=== PATIENT | female | born 1965 | race Caucasian/White ===

== ENCOUNTER → 2017-09-15 | Outpatient (CLI) | payer OTHER ==
[~2017-09-15] MED LIST: CARV12.52 PO; CLR10 PO; HYDR25TA5 PO; VNTHFA/IN INH
== END | disposition home or self-care (01) ==
LOC: C.LABPBG 08:37
PROVIDERS: ATTEND Internal Medicine Endocrinology, Diabetes & Metabolism
DX: Z86.39 Personal history of other endocrine, nutritional and metabolic disease (principal)

== ENCOUNTER 2023-06-13 08:48 | Observation (INO) ==
--- NOTE | 2023-06-11 12:32 | Anesthesiology Consultation ---
Date of Service June 11, 2023 Assessment & Plan (1) Encounter for pre-operative examination: Chart Review Chart Review: Acceptable Risk for Surgery (pending DOS EKG ) and Patient NOT seen in Pre Admission Testing - Check EKG stat DOS -COVID screening: Per PAT nursing assessment on 06/06/23. No known COVID-19 positive contacts or current COVID-19 related symptoms. Travel screen negative. At surgeon discretion if preop Covid testing being done. History Surgery Operation Date: 06/13/23 08:25 Proposed Procedures p Total Laparoscopic Hysterectomy, Bilateral Salpingo-oophorectomy, Cystoscopy, Possible Laparotomy - Tito Anderson MD Height/Weight Height: 5 ft 5 in Weight: 75.75 kg Allergies Allergy/AdvReac Type Severity Reaction Status Date / Time bee venom protein (honey bee) Allergy Severe swelling Verified 06/06/23 10:26 at site and spreads lisinopril Allergy Mild Rash Verified 06/06/23 10:26 animal dander Allergy Unknown SHORTNESS Verified 06/06/23 10:26 OF BREATH Penicillins Allergy Unknown HIVES Verified 06/06/23 10:26 pollen extracts Allergy Unknown SHORTNESS Verified 06/06/23 10:26 OF BREATH COLD AIR Allergy Unknown SHORTNESS Uncoded 06/06/23 10:26 OF BREATH Dust Allergy Unknown SHORTNESS Uncoded 06/06/23 10:26 OF BREATH PERFUME Allergy Unknown SHORTNESS Uncoded 06/06/23 10:26 OF BREATH Medications Home Medications Medication Instructions Recorded Confirmed Last Taken ascorbic acid (vitamin C) 500 mg 500 mg PO QAM 06/06/23 06/06/23 Unknown tablet (Vitamin C) carvedilol 6.25 mg tablet 6.25 mg PO BID 06/06/23 06/06/23 Unknown cholecalciferol (vitamin D3) 25 25 mcg PO HS 06/06/23 06/06/23 Unknown mcg (1,000 unit) chewable tablet (Vitamin D3) hydrochlorothiazide 12.5 mg tablet 12.5 mg PO QAM 06/06/23 06/06/23 Unknown ibuprofen 200 mg tablet 400 mg PO Q6H PRN Pain 06/06/23 06/06/23 Unknown loratadine 10 mg tablet 10 mg PO HS 06/06/23 06/06/23 Unknown multivit,Ca,iron,dxn-EW-xgoxpdf-ewmfmvn-riug-KGQR 1 cap PO HS 06/06/23 06/06/23 Unknown 3 mg-133 mcg capsule soy isofla 56 mg-black cohosh 40 1 tab PO QAM 06/06/23 06/06/23 Unknown mg-green tea,yerba mate 130 mg tablet ([employer]) Past Medical History Medical History Arthritis Asthma well controlled > no res inh Environmental allergies History of COVID-2019 Hypertension Nausea and vomiting after administration of anesthetic agent Thyroid nodule present Past Surgical History Surgical History History of cholecystectomy History of colonoscopy History of dilatation and curettage History of parathyroid surgery 2019 adenoma removed > benign [place] teeth extracted Social History Smoking Status: Never smoker Do You Dip or Chew Tobacco: No Hx Alcohol Use: Yes Alcohol type: wine alcohol intake frequency: a few times a month Hx Substance Use: No substance use type: does not use Testing Laboratory Results 06/11/23= WBC: 4.60 H/H: 14.4/42.7 PLATELETS: 203 SODIUM: 142 POTASSIUM: 4.4 CHLORIDE: 103 CO2: 28 BUN: 13 CREATININE: 0.8 GLUCOSE: 88
[~2023-06-13 08:48] MED LIST changes: +ALLERGY Noted to ORDERED Medication SCH; -CARV12.52 PO; -CLR10 PO; -HYDR25TA5 PO; +LACTATED RINGER'S 1,000 ML IV SCH; +LR 15ML/HR IV SCH; -VNTHFA/IN INH; +ceFAZolin 2000MG 2,000 MG/15 ML SYR IV SCH
[2023-06-13] MEDS ORDERED: ONDANSETRON INJ 2 MG/ML 2 ML VIAL IV PRN ×2 (09:29→13:28)
[2023-06-13] MEDS ORDERED: ATROPINE SULFATE 0.1 MG/ML 10ML SYR IV PRN (09:29)
[2023-06-13] MEDS ORDERED: ACETAMINOPHEN 500 MG TAB PO STA (09:29)
[2023-06-13] MEDS ORDERED: SCOPOLAMINE 1 MG TDSY TD STA (09:29)
[2023-06-13] MEDS ORDERED: ePHEDrine sulfate 50 MG/ML AMP IV PRN (09:29)
[2023-06-13] MEDS ORDERED: ACETAMINOPHEN 500 MG TAB ONE (09:39)
[2023-06-13] MEDS ORDERED: SCOPOLAMINE 1 MG TDSY TD ONE (09:39)
[2023-06-13] MEDS ORDERED: fentaNYL citrate PF 100 MCG/2 ML VIAL ONE ×2 (10:45→13:09)
[2023-06-13] MEDS ORDERED: MIDAZOLAM HCL 1 MG/ML 2ML VIAL ONE (10:45)
--- NOTE | 2023-06-13 11:14 | History & Physical Bridge Note ---
Date of Service June 13, 2023 History & Physical Bridge Note I have examined the patient, reviewed the History & Physical and in the interval since the performance of the History & Physical I have noted the following changes of clinical significance: no changes noted
[2023-06-13] MEDS ORDERED: ceFAZolin 2,000 MG/15 ML IV PUSH IV ONE (11:20)
[2023-06-13] MEDS ORDERED: Nursing to Pharmacy Communication SCH (11:30)
[2023-06-13] MEDS ORDERED: BUPIVACAINE/EPINEPHRINE 0.5% MPF 1:200,000 30 ML VIAL ONE (11:30)
[2023-06-13] MEDS ORDERED: PROPOFOL IV EMULSION 10 MG/ML 20 ML VIAL IV ONE (11:45)
[2023-06-13] MEDS ORDERED: DEXAMETHASONE SOD INJ 4 MG/ML VIAL ONE (11:45)
[2023-06-13] MEDS ORDERED: LIDOCAINE 2% 2 ML VIAL/AMP(20MG/ML) INFIL ONE (11:45)
[2023-06-13] MEDS ORDERED: ROCURONIUM BROMIDE 10 MG/ML 5 ML VIAL IV ONE (11:45)
[2023-06-13] MEDS ORDERED: FLOSEAL HEMOSTATIC MATRIX 10ML TOP ONE (12:27)
--- NOTE | 2023-06-13 12:57 | Electrocardiogram Report ---
Test Reason : Blood Pressure : / mmHG Vent. Rate : 067 BPM Atrial Rate : 067 BPM P-R Int : 166 ms QRS Dur : 082 ms QT Int : 432 ms P-R-T Axes : 013 -17 000 degrees QTc Int : 456 ms Normal sinus rhythm Nonspecific ST abnormality Abnormal ECG No previous ECGs available Confirmed by Alex Goyal ([id number]) on 06/13/2023 12:57:31 PM Referred By: Tito Anderson Confirmed By:Alex Goyal
[2023-06-13] MEDS ORDERED: SUGAMMADEX SODIUM 200 MG/2 ML VIAL IV ONE (13:11)
[2023-06-13] MEDS ORDERED: MAGNESIUM HYDROXIDE SUSP 30 ML UDC PO PRN (13:28)
[2023-06-13] MEDS ORDERED: oxyCODONE/ACETAMINOPHEN 5mg/325mg TAB PO PRN (13:28)
[2023-06-13] MEDS ORDERED: SIMETHICONE 80 MG CHEW PO PRN (13:28)
[2023-06-13] MEDS ORDERED: LACTATED RINGER'S 1,000 ML IV SCH (13:30)
--- NOTE | 2023-06-13 13:34 | Operative Report ---
PG Post Operative Report Pre & Post Diagnosis Operation Date: 06/13/23 10:35 Pre-Op Diagnosis: Abnormal Uterine Bleeding, Postmenopausal Bleeding Post-Op Diagnosis: Abnormal Uterine Bleeding, Postmenopausal Bleeding I identified the patient and participated in the time-out.: Yes Procedure Operation Date: 06/13/23 10:35 Actual Procedures p Total Laparoscopic Hysterectomy, Bilateral Salpingo-oophorectomy, Cystoscopy(Not Applicable) - Tito Anderson MD Surgeon Tito Anderson MD Powder Worker Minh Dela Cruz Estimated Blood Loss 10 Findings Consistent with Post-Op Diagnosis atrophic vulva vagina 8 week size uterus Nml tubes and ovaries Nmlpelvics and abdomen Fluids IVF; 1400 EBL; 10 urine : 400 cc clear urine at end of procedure Specimens Uterus with cervix Tubes and ovaries Drains none Anesthesia Type General Complications none Indications post menopausal bleeding Description of Procedure FINDINGS: DESCRIPTION OF PROCEDURE: The patient was prepped and draped in normal sterile fashion in the dorsal lithotomy position. Montes catheter was placed without difficulty. An [employer] uterine manipulator was placed in the uterus to help with colpotomy. Attention was paid to the abdominal part of the procedure where a supraumbilical incision was made and carried down to the fascia. Dillon was used to grab the fascia. Veress needle was introduced into the abdomen at a 45-degree angle while tenting up the abdomen. Intra-abdominal placement was confirmed with a water-filled syringe. A water drop and suction test was performed. The abdomen was insufflated with CO2 gas. The Veress needle was removed and a 5 mm non bladed trocar was attached to a laparoscope was introduced into the abdomen under direct visualization. This was a non bladed trocar. Once inside the abdomen, laparoscope was repositioned. Inspection of the abdomen shows the findings as dictated above. Three more accessory ports were placed, two 5 mm accessory ports were placed in the lower abdomen on the contralateral side, in addition, an 11 mm trocar was placed on the left upper quadrant. Left and right fallopian tubes, the ureters, uterosacrals, bowels, appendix were examined and identified. LigaSure was passed through the left accessory port. The fallopian tube was identified and grabbed 4 cm from the cornua of the uterus with the LigaSure and transected. This was followed by opening of the left anterior leaf of the broad ligament. This allowed for fenestration of the posterior left broad ligament. The mid-section of the left fallopian tube, utero-ovarian and meso-ovarian pedicles were transected as well. Same procedure was performed on the contralateral side. The anterior broad ligament dissection was carried to the mid-section of the vesicouterine peritoneum over the bladder using the Harmonic scalpel. Same procedure was carried out on the contralateral side. The roving can tender ior broad ligament peritoneum was carefully dissected also from both sides over the uterosacral arch in order to displace the ureters laterally. Using traction and countertraction, the [place] retractor and irrigation probe was used to further dissect the bladder off the lower segment of the uterus. Bladder pillars and pubovesical fascia was dissected as well. Harmonic scalpel was used to obtain hemostasis where needed. Uterine manipulator was now palpable over the vaginal tissue. The right uterine pedicles were skeletonized and coagulated with the LigaSure. Good hemostasis was obtained. Same procedure was performed on the contralateral side. Cardinal ligaments were transected on both sides. Once good hemostasis was obtained, colpotomy was performed using the LigaSure hook from both sides. Uterus was removed through the vagina while still attached to the uterine manipulator. The bulb was attached to the uterine manipulator was reinserted into the vagina to establish pneumoperitoneum. With a grasper, the remaining section of the left ovary and tube were positioned anteromedially. Both tube and ovary was removed. Same procedure was performed on both sides. EndoStitch closure device was passed through the 11 mm port on the left. Using the [place] grasper for traction, colpotomy closure was performed. The uterosacral ligaments incorporated into the closure in order to decrease the risk of prolapse. Lapro ties were used with the EndoStitch. The 11-mm trocar site was closed with a Jamaal-Jacobs under direct visualization. Attention was paid to the cystoscopy part of the procedure where a cystoscope was introduced into the bladder. There are no sutures seen in the bladder. There were no gross blood seen in the bladder as well. The bubble sign is noted showing the bladder was a close cavity. Both ureters were seen and there was efflux from both uterus. The skin incisions are closed with Dermabond, except for the 11-mm trocar site, which was closed with 4-0 Monocryl. The patient was returned to recovery in stable condition. Inspection of the vagina shows the vaginal cuff was intact. All instruments were removed from the vagina and the bladder and accounted for x2. Powder Worker was necessary for retraction and manipulation of instruments in order to provide for a safe operation I attest to the content of the Intraoperative Record and any orders documented therein. Any exceptions are noted below.
[2023-06-13] MEDS: HYDROmorphone INJ 2 MG/ML SYR/VIAL IV PRN ×4 (14:00→14:15)
--- NOTE | 2023-06-13 14:27 | Anesthesiology Progress Note ---
Date of Service June 13, 2023 Anesthesia Post Procedure Vital Signs Vital Signs: Temp Pulse Resp BP Pulse Ox O2 Del Method O2 Flow Rate 06/13/23 14:20 36.4 C L 54 L 15 136/84 96 Room Air 06/13/23 14:00 50 L 16 169/89 H 99 Room Air 06/13/23 13:50 57 L 17 117/63 100 Oxymask 5 06/13/23 13:40 36.3 C L 58 L 17 148/79 H 100 Oxymask 5 06/13/23 08:57 36.7 C 74 20 174/94 H 100 Room Air Transfer of Care Handoff Completed per policy Notes Mental Status: alert / awake / arousable and participated in evaluation Nausea / Vomiting: adequately controlled Pain: adequately controlled Airway Patency, RR, SpO2: stable & adequate BP & HR: stable & adequate Hydration State: stable & adequate Anesthetic Complications: no major complications apparent and Pt Satisfied with anesthetic care
[2023-06-13] MEDS: CHECK SCOPOLAMINE PATCH PLACEMENT SCH (18:33)
[2023-06-13] MEDS: IBUPROFEN 600 MG TAB PO PRN ×2 (19:29→23:30)
[2023-06-13] MEDS: carvediloL 6.25 MG TAB PO SCH (19:30)
[2023-06-13] MEDS ORDERED: CHOLECALCIFEROL 1,000 UNITS 25 MCG TAB PO SCH (21:00)
[2023-06-13] MEDS ORDERED: LORATADINE 10 MG TAB PO SCH (21:00)
[2023-06-13] MEDS: DOCUSATE SODIUM 100 MG CAP PO SCH (21:20)
[2023-06-14] MEDS: IBUPROFEN 600 MG TAB PO PRN ×2 (04:14→09:37)
[2023-06-14 07:23] LABS: Basophils # (auto) 0.03 K/uL (0-0.2); Basophils % (auto) 0.2 %; Eosinophils # (auto) 0.12 K/uL (0-0.50); Eosinophils % (auto) 0.9 %; Hematocrit (blood only) 34.7 % (37.0-47.0); Hemoglobin 12.3 g/dl (12.0-16.0); Immature Granulocytes # (auto) 0.06 K/uL (0.01-0.20); Immature Granulocytes % (auto) 0.4 %; Lymphocytes # (auto) 1.12 K/uL (1.2-3.4); Lymphocytes % (auto) 8.1 %; Mean Corpuscular Hemoglobin 31.7 pg (25.0-34.0); Mean Corpuscular Hgb Conc 35.4 g/dL (32.0-36.0); Mean Corpuscular Volume 89.4 fL (80.0-100.0); Mean Platelet Volume 11.5 fL (9.4-12.4); Monocytes # (auto) 0.98 K/uL (0.11-0.59); Monocytes % (auto) 7.1 %; Neutrophils # (auto) 11.53 K/uL (1.40-6.50); Neutrophils % (auto) 83.3 %; Platelet Count 193 K/uL (130-400); RDW Coefficient of Variation 12.6 % (11.5-14.5); RDW Standard Deviation 40.9 fL (36.4-46.3); Red Blood Count 3.88 M/uL (4.20-5.40); White Blood Count 13.84 K/ul (4.8-10.8)
[2023-06-14 07:24] LABS: BUN Creatinine Ratio 15.3 (10-20); Calcium 8.5 mg/dl (8.6-10.3); Creatinine Clr Calc Pharmacy 105.5 ml/min; Est GFR (African American) 117.1 ml/min; Potassium 3.4 mmol/L (3.5-5.1)
[2023-06-14] MEDS: carvediloL 6.25 MG TAB PO SCH (08:36)
[2023-06-14] MEDS: CHECK SCOPOLAMINE PATCH PLACEMENT SCH ×2 (08:37)
[2023-06-14] MEDS: DOCUSATE SODIUM 100 MG CAP PO SCH (08:37)
[2023-06-14] MEDS ORDERED: hydroCHLOROthiazide 25 MG TAB PO SCH (09:00)
[2023-06-14] MEDS ORDERED: ASCORBIC ACID 500 MG TAB PO SCH (09:00)
--- NOTE | 2023-06-14 09:09 | Obstetrical Progress Note ---
Date of Service June 14, 2023 Assessment & Plan (1) S/P laparoscopic hysterectomy: pt doing well disch home with instrcutions Subjective Review of Systems All systems reviewed & are unremarkable except as noted in HPI & below Physical Exam Constitutional WD/WN, vitals as above Eyes PERRL, conjunctivae normal, anicteric sclerae ENMT external ear and nose normal, oropharynx normal Neck trachea midline, no thyromegaly Respiratory normal respiratory effort, lungs clear to auscultation Cardiovascular RRR, no murmur, no edema Chest (Breasts) normal inspection/palpation of breasts Gastrointestinal (Abdomen) normal bowel sounds, soft, nontender, no hepatosplenomegaly Musculoskeletal no cyanosis or clubbing, extremities motor strength 5/5 Skin + incision (Incision clean,dry and intact) Neurologic patellar DTR's 2+ bilat, sensation intact Psychiatric A+Ox3, euthymic affect Genitourinary no vaginal lesions, no adnexal mass Lymphatic no cervical or axillary lymphadenopathy Results & Data Vital Signs (Past 12 Hours) Vital Signs Temp Pulse Resp BP Pulse Ox O2 Del Method 06/14/23 07:56 36.9 C 60 18 147/80 H 96 06/14/23 07:30 36.9 C 60 18 147/80 H Room Air 06/14/23 04:15 37.1 C 59 L 18 137/84 96 Room Air 06/13/23 23:35 36.7 C 57 L 18 144/78 H 96 Room Air
--- NOTE | 2023-06-14 09:13 | Discharge Summary ---
Date of Service June 14, 2023 Admission HPI Per Admitting Provider pt underwent total laparoscopic hysterectomy surgery was unremarkable;le details os surgery is in the surgical note Admission Exam (Per Admitting) Constitutional WD/WN, vitals as above Eyes PERRL, conjunctivae normal, anicteric sclerae ENMT external ear and nose normal, oropharynx normal Neck trachea midline, no thyromegaly Respiratory normal respiratory effort, lungs clear to auscultation Cardiovascular RRR, no murmur, no edema Chest (Breasts) normal inspection/palpation of breasts Gastrointestinal (Abdomen) + BS, Incision is clean,dry and intact Musculoskeletal no cyanosis or clubbing, extremities motor strength 5/5 Skin + incision (Incision clean,dry and intact) Neurologic patellar DTR's 2+ bilat, sensation intact Psychiatric A+Ox3, euthymic affect Genitourinary no vaginal lesions, no adnexal mass (Minimal Vag disch) Lymphatic no cervical or axillary lymphadenopathy Discharge Data Procedures Performed Operation Date: 06/13/23 10:35 Actual Procedures p Total Laparoscopic Hysterectomy, Bilateral Salpingo-oophorectomy, (Not Applicable) - Tito Anderson MD s Cystoscopy(Not Applicable) - Tito Anderson MD Hospital Course (1) S/P laparoscopic hysterectomy: pt doing well disch home with instrcutions Discharge Instructions Post op course was unremarkable and pt is discharges home in stable condition. Discharge instructions including medications,diet, activity and follow up appointments are reviewed with pt.
== END 2023-06-14 10:00 | disposition home or self-care (01) ==
LOC: 4E1 08:48 → ASU 08:48

== ENCOUNTER 2024-02-24 16:37 | Inpatient (IN) ==
[2024-02-24 17:32] LABS: Basophils # (auto) 0.03 K/uL (0.00-0.20); Basophils % (auto) 0.2 %; Eosinophils # (auto) 0.25 K/uL (0.00-0.50); Eosinophils % (auto) 1.9 %; Hematocrit (blood only) 39.9 % (37.0-47.0); Hemoglobin 13.8 g/dl (12.0-16.0); Immature Granulocytes # (auto) 0.05 K/uL (0.01-0.20); Immature Granulocytes % (auto) 0.4 %; Lymphocytes % (auto) 5.4 %; Mean Corpuscular Hemoglobin 31.9 pg (25.0-34.0); Mean Corpuscular Hgb Conc 34.6 g/dL (32.0-36.0); Mean Corpuscular Volume 92.1 fL (80.0-100.0); Monocytes # (auto) 0.45 K/uL (0.11-0.59); Monocytes % (auto) 3.5 %; Neutrophils # (auto) 11.44 K/uL (1.40-6.50); Neutrophils % (auto) 88.6 %; Platelet Count 197 K/uL (130-400); RDW Coefficient of Variation 12.8 % (11.5-14.5); RDW Standard Deviation 43.1 fL (36.4-46.3); Red Blood Count 4.33 M/uL (4.20-5.40); White Blood Count 12.92 K/ul (4.8-10.8)
[2024-02-24 17:47] LABS: Albumin Globulin Ratio 1.6 (0.9-2); Albumin Level 4.6 gm/dl (3.4-5.0); BUN Creatinine Ratio 18.2 (10-20); Bilirubin,Total 0.5 mg/dl (0.2-1.0); Calcium 9.6 mg/dl (8.6-10.3); Est GFR (African American) 112.9 ml/min; Est GFR (Non-African American) 97.4 ml/min; Globulin 2.8 gm/dl (2.5-4.0); Potassium 3.7 mmol/L (3.5-5.1); Total Protein 7.4 gm/dl (6.0-8.3)
[2024-02-24] MEDS: OPTIRAY 320 100ml IV ONE (18:20)
--- NOTE | 2024-02-24 18:41 | Emergency Department Note ---
Impression & Plan Acute upper abdominal pain, SBO (small bowel obstruction), Internal hernia, Leukocytosis ED Provider Note NAME: EDAUR CALDERÓN AGE: 58 SEX: F : 1965 ARRIVES VIA: Walk-In INFORMANT: [Patient] ED PROVIDER(S): [Garry James MD] CHIEF COMPLAINT: Abdominal pain HISTORY OF PRESENT ILLNESS: The patient is a 58-year-old female presents to the ED with complaints of mid bilateral abdominal pain since around noon. This morning when she ate breakfast, she felt fine. The pain has escalated to the point where it is now constant, she feels the pain radiate into the back. She has not had fever, no urinary or respiratory complaints. No shortness of breath. The patient states that she has noticed that she now has no appetite. The patient has had a previous gallbladder resection. PMHx/PSHx/Social Hx: See Below PHYSICAL EXAM: GENERAL: Patient is in no acute distress. HEENT: No acute trauma, normocephalic atraumatic, mucous membranes moist, no nasal congestion. NECK: No stridor, no adenopathy, no meningismus, trachea is midline. LUNGS: Clear to auscultation bilaterally, no wheeze, no rhonchi, breath sounds equal. HEART: Without murmurs gallops or rubs, regular rate and rhythm. ABDOMEN: Soft, moderately tender in the mid upper abdomen, no abdominal distention. EXTREMITIES: No cyanosis, full range of motion of all the joints without pain or difficulty. NEUROLOGIC: Oriented x 3, no acute motor or sensory deficits, no focal weakness. SKIN: No jaundice, no diaphoresis. DIFFERENTIAL DIAGNOSIS: Pancreatitis, biliary colic, diverticulitis, abscess, bowel obstruction, among others. EMERGENCY DEPARTMENT PROCEDURES: MEDICAL DECISION MAKING: There is a mild leukocytosis, this would be consistent with infection or possibly just her pain. There is a normal hemoglobin and platelet count. No renal failure or significant electrolyte abnormality. No concerning liver enzyme elevation. No evidence for pancreatitis. Urinalysis suggested some dehydration, no findings of infection. Abdominal and pelvis CT shows a small bowel obstruction secondary to what appears to be an internal hernia, a surgical consult was recommended. The patient did receive IV saline for hydration. She was given IV Zofran for nausea. She received IV morphine for pain. She eventually had an NG tube placed to help decompress the bowel. I did speak with the patient about her findings. I did speak with general surgery. The patient is being hospitalized, she will need OR intervention. The findings of small bowel obstruction do explain the patient's presentation. She is feeling improved since her treatment here in the ED. Prior/Outside records/notes reviewed: None Imaging/x-ray results per my interpretation: KUB shows the NG tube to be in position. Some small bowel dilatation was seen. No free air. Chronic Medical/Social conditions affecting care: Care/Management discussed with: General surgery-Dr. Stevenson Level of care consideration(s): After review of the information above and other included data: --I believe the patient requires escalation of care to admission DISPOSITION: Admission with surgical intervention Past Med/Surg History Medical History Nausea and vomiting after administration of anesthetic agent Environmental allergies Arthritis Thyroid nodule present History of COVID-2019 Hypertension Asthma well controlled > no res inh Surgical History [place] teeth extracted History of dilatation and curettage History of colonoscopy History of cholecystectomy History of parathyroid surgery 2019 adenoma removed > benign Social History Smoking Status: Never smoker Second Hand Exposure: No; Do You Dip or Chew Tobacco: No; Hx Alcohol Use: No Hx Substance Use: No Preferred Language: Kiswahili Communication Ability: Effective Handle Lathe Operator Required: No Beliefs That Will Affect Care: None Current Living Situation: Spouse Feels Safe at Home: Yes Safety Concerns: Feels Safe At This Time Assistive Devices: None Allergies Allergies Allergy/AdvReac Type Severity Reaction Status Date / Time bee venom protein (honey bee) Allergy Severe swelling Verified 02/24/24 20:18 at site and spreads lisinopril Allergy Mild Rash Verified 02/24/24 20:18 animal dander Allergy Unknown SHORTNESS Verified 02/24/24 20:18 OF BREATH Penicillins Allergy Unknown HIVES Verified 02/24/24 20:18 pollen extracts Allergy Unknown SHORTNESS Verified 02/24/24 20:18 OF BREATH COLD AIR Allergy Unknown SHORTNESS Uncoded 02/24/24 20:18 OF BREATH Dust Allergy Unknown SHORTNESS Uncoded 02/24/24 20:18 OF BREATH PERFUME Allergy Unknown SHORTNESS Uncoded 02/24/24 20:18 OF BREATH Home Meds Home Medications Medication Instructions Recorded Confirmed ascorbic acid (vitamin C) 500 mg 500 mg PO QAM 06/06/23 02/24/24 tablet (Vitamin C) carvedilol 6.25 mg tablet 6.25 mg PO BID 06/06/23 02/24/24 hydrochlorothiazide 12.5 mg tablet 12.5 mg PO QAM 06/06/23 02/24/24 ibuprofen 200 mg tablet 400 mg PO Q6H PRN Pain 06/06/23 02/24/24 loratadine 10 mg tablet 10 mg PO HS 06/06/23 02/24/24 multivit,Ca,iron,vrv-TP-vudjbsc-dclrgno-qive-UVMI 1 cap PO HS 06/06/23 02/24/24 3 mg-133 mcg capsule estradiol 0.01% (0.1 mg/gram) 1 appful vaginal 3XWK 06/13/23 02/24/24 vaginal cream Biotin/Collagen Liquid 1 dose PO DAILY 02/24/24 02/24/24 acetaminophen 650 mg 650 mg PO Q8H PRN Pain 02/24/24 02/24/24 tablet,extended release (Tylenol 8 Hour) albuterol sulfate 90 mcg/actuation 2 puff inhalation Q4H PRN 02/24/24 02/24/24 aerosol inhaler Shortness Of Breath Or Wheezing cholecalciferol (vitamin D3) 125 125 mcg PO DAILY 02/24/24 02/24/24 mcg (5,000 unit) tablet (Vitamin D3) Results & Data (ED) Vital Signs Vital Signs - 24 hr 02/24/24 16:48 02/24/24 18:53 02/24/24 18:55 Temperature 36.5 C Temperature Source Skin Pulse Rate 73 73 77 Pulse Rate from SpO2 Sensor 73 Pulse Rhythm Regular Pulse Strength Normal Respiratory Rate 18 22 Respiratory Effort / Characteristics Non-Labored Respiratory Depth Normal Blood Pressure 170/90 H Blood Pressure [Left Arm] Blood Pressure Mean 116 Blood Pressure Mean [Left Arm] Blood Pressure Position Lying Pulse Oximetry 100 100 Oxygen Delivery Method Room Air Sepsis Recent Fever Within 48 Hours No Sepsis New/Unexplained Change in Mental Status N/A Sepsis Action Taken by Nursing No Action Required 02/24/24 19:00 02/24/24 19:10 02/24/24 19:13 Temperature Temperature Source Pulse Rate 72 76 77 Pulse Rate from SpO2 Sensor 73 78 77 Pulse Rhythm Pulse Strength Respiratory Rate 23 15 21 Respiratory Effort / Characteristics Respiratory Depth Blood Pressure Blood Pressure [Left Arm] Blood Pressure Mean Blood Pressure Mean [Left Arm] Blood Pressure Position Pulse Oximetry 99 99 99 Oxygen Delivery Method Sepsis Recent Fever Within 48 Hours Sepsis New/Unexplained Change in Mental Status Sepsis Action Taken by Nursing 02/24/24 19:20 02/24/24 19:30 02/24/24 19:40 Temperature Temperature Source Pulse Rate 93 H 75 77 Pulse Rate from SpO2 Sensor 92 H 75 78 Pulse Rhythm Pulse Strength Respiratory Rate 16 29 H 18 Respiratory Effort / Characteristics Respiratory Depth Blood Pressure Blood Pressure [Left Arm] Blood Pressure Mean Blood Pressure Mean [Left Arm] Blood Pressure Position Pulse Oximetry 92 99 95 Oxygen Delivery Method Sepsis Recent Fever Within 48 Hours Sepsis New/Unexplained Change in Mental Status Sepsis Action Taken by Nursing 02/24/24 19:50 02/24/24 20:00 02/24/24 20:10 Temperature Temperature Source Pulse Rate 82 85 86 Pulse Rate from SpO2 Sensor 82 86 84 Pulse Rhythm Pulse Strength Respiratory Rate 21 22 27 H Respiratory Effort / Characteristics Respiratory Depth Blood Pressure Blood Pressure [Left Arm] Blood Pressure Mean Blood Pressure Mean [Left Arm] Blood Pressure Position Pulse Oximetry 95 96 96 Oxygen Delivery Method Room Air Sepsis Recent Fever Within 48 Hours Sepsis New/Unexplained Change in Mental Status Sepsis Action Taken by Nursing 02/24/24 20:24 02/24/24 20:24 02/24/24 20:26 Temperature Temperature Source Pulse Rate Pulse Rate from SpO2 Sensor Pulse Rhythm Pulse Strength Respiratory Rate Respiratory Effort / Characteristics Respiratory Depth Blood Pressure Blood Pressure [Left Arm] 142/88 H Blood Pressure Mean Blood Pressure Mean [Left Arm] 106 Blood Pressure Position Pulse Oximetry 98 Oxygen Delivery Method Room Air Room Air Sepsis Recent Fever Within 48 Hours Sepsis New/Unexplained Change in Mental Status Sepsis Action Taken by Intermediate Medications Current Medication List: was personally reviewed by me Laboratory Data Attestation: I reviewed the patient's lab results. 02/24/24 17:10 02/24/24 17:10 Lab Results 02/24/24 Range/Units 17:10 WBC 12.92 H (4.8-10.8) K/ul RBC 4.33 (4.20-5.40) M/uL Hgb 13.8 (12.0-16.0) g/dl Hct 39.9 (37.0-47.0) % MCV 92.1 (80.0-100.0) fL MCH 31.9 (25.0-34.0) pg MCHC 34.6 (32.0-36.0) g/dL RDW Std Deviation 43.1 (36.4-46.3) fL RDW Coeff of Haris 12.8 (11.5-14.5) % Plt Count 197 (130-400) K/uL MPV 11.0 (9.4-12.4) fL Immature Gran % (Auto) 0.4 % Neut % (Auto) 88.6 % Lymph % (Auto) 5.4 % Wilkin % (Auto) 3.5 % Eos % (Auto) 1.9 % Baso % (Auto) 0.2 % Neut # (Auto) 11.44 H (1.40-6.50) K/uL Lymph # (Auto) 0.70 L (1.20-3.40) K/uL Wilkin # (Auto) 0.45 (0.11-0.59) K/uL Eos # (Auto) 0.25 (0.00-0.50) K/uL Baso # (Auto) 0.03 (0.00-0.20) K/uL Immature Gran # (Auto) 0.05 (0.01-0.20) K/uL Sodium 138 (136-145) mmol/L Potassium 3.7 (3.5-5.1) mmol/L Chloride 101 (98-107) mmol/L Carbon Dioxide 28 (21-32) mmol/L Anion Gap 9 (3-11) BUN 12 (6-23) mg/dl Creatinine 0.66 (0.6-1.2) mg/dl Est Cr Clr Drug Dosing 95.0 ml/min Est GFR ( Amer) 112.9 ml/min Est GFR (Non-Af Amer) 97.4 ml/min BUN/Creatinine Ratio 18.2 (10-20) Glucose 109 H (70-99(Fasting)) mg/dl Calcium 9.6 (8.6-10.3) mg/dl Total Bilirubin 0.5 (0.2-1.0) mg/dl AST 20 (13-39) U/L ALT 18 (7-52) U/L Alkaline Phosphatase 58 (34-104) U/L Total Protein 7.4 (6.0-8.3) gm/dl Albumin 4.6 (3.4-5.0) gm/dl Globulin 2.8 (2.5-4.0) gm/dl Albumin/Globulin Ratio 1.6 (0.9-2) Lipase 15 (11-82) U/L Administered Medications Hydromorphone HCl (Hydromorphone Inj 1 Mg/Ml Syringe) 0.25 mg IV Q5M PRN PRN Reason: PACU Use Only-Pain Stop: 02/25/24 04:28 Last Admin: 02/24/24 22:35 Dose: 0.25 mg Documented By: Admin: 02/24/24 22:30 Dose: 0.25 mg Documented By: SERGEI Sodium Chloride (Nss) 1,000 mls @ 100 mls/hr IV .Q10H SONU Stop: 03/25/24 23:07 Last Admin: 02/24/24 23:29 Dose: 100 mls/hr Documented By: JOSSY Morphine Sulfate (Morphine Sulfate 2 Mg/Ml Carp) 2 mg IV Q3H PRN PRN Reason: Pain (1,2,3,4,5) & Pre PT Stop: 03/09/24 23:07 Last Admin: 02/25/24 00:11 Dose: 2 mg Documented By: JOSSY Discontinued Medications Cefoxitin Sodium (Cefoxitin Sod 1,000 Mg Vial) Confirm Administered Dose 2,000 mg .ROUTE .STK-MED ONE Stop: 02/24/24 20:07 Last Admin: 02/24/24 23:56 Dose: Not Given Documented By: JOSSY Fentanyl Citrate (Fentanyl Citrate Pf 100 Mcg/2 Ml Vial) 25 mcg IV Q5M PRN PRN Reason: PACU Use Only-Pain Stop: 02/25/24 04:28 Last Admin: 02/24/24 22:25 Dose: 25 mcg Documented By: Admin: 02/24/24 22:20 Dose: 25 mcg Documented By: Admin: 02/24/24 22:15 Dose: 25 mcg Documented By: Admin: 02/24/24 22:10 Dose: 25 mcg Documented By: SERGEI Fentanyl Citrate (Fentanyl Citrate Pf 100 Mcg/2 Ml Vial) Confirm Administered Dose 100 mcg .ROUTE .STK-MED ONE Stop: 02/24/24 22:10 Last Admin: 02/24/24 23:57 Dose: Not Given Documented By: JOSSY Hydromorphone HCl (Hydromorphone Inj 0.5 Mg/0.5 Ml Syr) Confirm Administered Dose 0.5 mg .ROUTE .STK-MED ONE Stop: 02/24/24 22:28 Last Admin: 02/24/24 22:30 Dose: Not Given Documented By: SERGEI Sodium Chloride (Nss) 1,000 mls @ 999 mls/hr IV .Q1H1M ONE Stop: 02/24/24 19:33 Last Infusion: 02/24/24 19:50 Dose: Infused Documented By: Admin: 02/24/24 18:49 Dose: 999 mls/hr Documented By: MAGUE Ioversol (Optiray 320 100ml) 92 ml IV ONCE ONE Stop: 02/24/24 18:21 Last Admin: 02/24/24 18:20 Dose: 92 ml Documented By: DAVID Morphine Sulfate (Morphine Sulfate 10 Mg/Ml Carp/Vial) 6 mg IV NOW STA Stop: 02/24/24 18:34 Last Admin: 02/24/24 18:43 Dose: 6 mg Documented By: MAGUE Ondansetron HCl (Ondansetron Inj 2 Mg/Ml 2 Ml Vial) 4 mg IV NOW STA Stop: 02/24/24 18:34 Last Admin: 02/24/24 18:43 Dose: 4 mg Documented By: MAGUE Imaging Data Radiologist's Impression: Abdomen/Pelvis CT 02/24/24 16:[address] WITH IV CONTRAST CT DOSE: 876.53 mGy.cm HISTORY: upper abd pain TECHNIQUE: Multiaxial CT images of the abdomen and pelvis were performed following the use of intravenous contrast. A dose lowering technique was utilized adhering to the principles of ALARA. COMPARISON STUDY: None. FINDINGS: A 4 mm subpleural nodule within the right lower lobe on image 11. The left lung base is clear. No pneumoperitoneum. No pneumatosis. No acute fractures identified. Tiny fat-containing umbilical hernia. Prior cholecystectomy. This likely accounts for the mild central intrahepatic bile duct dilatation. The main portal vein is patent. There is a 2.7 cm enhancing lesion within the left hepatic lobe on image 48. This is indeterminate on this single phase study. Possible subtle 11 mm hypodense lesion within the spleen on image 80. This is indeterminate but could represent the normal heterogeneous enhancement of the spleen. The pancreas, adrenal glands, and kidneys are unremarkable. No hydronephrosis. No retroperitoneal lymphadenopathy. Normal caliber abdominal aorta. No pelvic lymphadenopathy or pelvic free fluid. The bladder is unremarkable. Prior hysterectomy. Colonic diverticulosis. No evidence for acute diverticulitis. Normal appendix. Multiple dilated and fluid-filled loops of proximal to mid small bowel. There are 2 separate transition points within the midabdomen best seen on images 156 and 172. The loops of small bowel between these transition points are distended and fluid-filled. Therefore, this is consistent with a closed loop obstruction. This is likely due to an internal hernia. There is mild mesenteric edema within these dilated loops of small bowel. IMPRESSION: 1. Small bowel obstruction as described above which appears to be a closed loop type obstruction with 2 separate transition points. This appears to be secondary to an internal hernia within the midabdomen. Therefore, urgent surgical consultation recommended. 2. A 4 mm subpleural nodule within the right lower lobe. Please refer to the chart below for recommended follow-up. 3. A 2.7 cm enhancing lesion within the left hepatic lobe. This is indeterminate but may represent focal nodular hyperplasia or a hemangioma. Follow-up nonemergent abdominal MRI can be used for confirmation. 4. Questionable 11 mm hypodense lesion within the spleen. This could also be reassessed on follow-up MRI. 5. Additional findings as described above. ACT 112: Negative or not required by law. Electronically signed by: Asher Franco M.D. 02/24/2024 6:42 PM Discharge Plan Visit Data Chief Complaint: Abdominal Pain Stated Complaint: ABD PAIN, VOMIT ED Provider: Garry James Discharge Problem: Acute upper abdominal pain, SBO (small bowel obstruction), Internal hernia, Leukocytosis Patient Disposition: Admitted As Inpatient Condition: Serious Discharge Instructions Interventions: ED Discharge Assessment Last Done: 02/24/24 20:26 Discharge Problem: Leukocytosis Qualifiers: Leukocytosis type: unspecified Qualified Code(s): D72.829 - Elevated white blood cell count, unspecified
[2024-02-24] MEDS: ONDANSETRON INJ 2 MG/ML 2 ML VIAL IV STA (18:43)
[2024-02-24] MEDS: MoRPHine SULFATE 10 MG/ML CARP/VIAL IV STA (18:43)
--- NOTE | 2024-02-24 18:45 | CT Scan Report ---
ABDOMEN AND PELVIS CT WITH IV CONTRAST CT DOSE: 876.53 mGy.cm HISTORY: upper abd pain TECHNIQUE: Multiaxial CT images of the abdomen and pelvis were performed following the use of intrave nous contrast. A dose lowering technique was utilized adhering to the principles of ALARA. COMPARISON STUDY: None. FINDINGS: A 4 mm subpleural nodule within the right lower lobe on image 11. The left lung base is linn ar. No pneumoperitoneum. No pneumatosis. No acute fractures identified. Tiny fat-containing umbilical hernia. Prior cholecystectomy. This likely accounts for the mild central intrahepatic bile duct dila tation. The main portal vein is patent. There is a 2.7 cm enhancing lesion within the left hepatic lo be on image 48. This is indeterminate on this single phase study. Possible subtle 11 mm hypodense les ion within the spleen on image 80. This is indeterminate but could represent the normal heterogeneous enhancement of the spleen. The pancreas, adrenal glands, and kidneys are unremarkable. No hydronephr osis. No retroperitoneal lymphadenopathy. Normal caliber abdominal aorta. No pelvic lymphadenopathy o r pelvic free fluid. The bladder is unremarkable. Prior hysterectomy. Colonic diverticulosis. No evid ence for acute diverticulitis. Normal appendix. Multiple dilated and fluid-filled loops of proximal t o mid small bowel. There are 2 separate transition points within the midabdomen best seen on images 1 56 and 172. The loops of small bowel between these transition points are distended and fluid-filled. Therefore, this is consistent with a closed loop obstruction. This is likely due to an internal herni a. There is mild mesenteric edema within these dilated loops of small bowel. IMPRESSION: 1. Small bowel obstruction as described above which appears to be a closed loop type obstruction with 2 separate transition points. This appears to be secondary to an internal hernia within the midabdom en. Therefore, urgent surgical consultation recommended. 2. A 4 mm subpleural nodule within the right lower lobe. Please refer to the chart below for recommen ded follow-up. 3. A 2.7 cm enhancing lesion within the left hepatic lobe. This is indeterminate but may represent fo yari nodular hyperplasia or a hemangioma. Follow-up nonemergent abdominal MRI can be used for confirma tion. 4. Questionable 11 mm hypodense lesion within the spleen. This could also be reassessed on follow-up MRI. 5. Additional findings as described above. ACT 112: Negative or not required by law. Electronically signed by: Asher Franco M.D. 02/24/2024 6:42 PM
[2024-02-24] MEDS: SODIUM CHLORIDE 0.9% 1,000 ML IV ONE (18:49)
[2024-02-24] MEDS ORDERED: fentaNYL citrate PF 100 MCG/2 ML VIAL ONE (20:16)
[2024-02-24] MEDS ORDERED: ONDANSETRON INJ 2 MG/ML 2 ML VIAL ONE ×3 (20:16→20:50)
[2024-02-24] MEDS ORDERED: LIDOCAINE 2% 2 ML VIAL/AMP(20MG/ML) INFIL ONE (20:16)
[2024-02-24] MEDS ORDERED: DEXAMETHASONE SOD INJ 4 MG/ML VIAL ONE (20:16)
[2024-02-24] MEDS ORDERED: ROCURONIUM BROMIDE 10 MG/ML 5 ML VIAL IV ONE (20:16)
[2024-02-24] MEDS ORDERED: PROPOFOL IV EMULSION 10 MG/ML 20 ML VIAL IV ONE (20:16)
[2024-02-24] MEDS ORDERED: MIDAZOLAM HCL 1 MG/ML 2ML VIAL ONE (20:16)
[2024-02-24] MEDS ORDERED: ACETAMINOPHEN 1000 MG/100 ML IV IV ONE (20:27)
[2024-02-24] MEDS ORDERED: FAMOTIDINE/PF 20 MG/2 ML VIAL IV ONE (20:28)
[2024-02-24] MEDS ORDERED: ePHEDrine sulfate 50 MG/ML AMP IV PRN (20:28)
[2024-02-24] MEDS ORDERED: ATROPINE SULFATE 0.1 MG/ML 10ML SYR IV PRN (20:28)
[2024-02-24] MEDS ORDERED: ONDANSETRON INJ 2 MG/ML 2 ML VIAL IV PRN ×2 (20:28→23:08)
[2024-02-24] MEDS ORDERED: PROMETHAZINE HCL 6.25 MG in SODIUM CHLORIDE 0.9% 50 ML IV PRN (20:28)
--- NOTE | 2024-02-24 20:31 | Anesthesiology Consultation ---
Date of Service February 24, 2024 Assessment & Plan Chart Review Chart Review: Acceptable Risk for Surgery and Patient NOT seen in Pre Admission Testing Consults Requested none ASA [id number] Proposed Anesthesia Anesthesia Type: General Risk / Benefits Reviewed With: PT / POA / Parent / Guardian, Accepts Plan and Informed Consent Obtained History Surgery Operation Date: 02/24/24 20:00 Proposed Procedures p Exploratory Laparotomy - Avtar Stevenson MD Height/Weight Height: 5 ft 4 in Weight: 79.9 kg Allergies Allergy/AdvReac Type Severity Reaction Status Date / Time bee venom protein (honey bee) Allergy Severe swelling Verified 02/24/24 20:18 at site and spreads lisinopril Allergy Mild Rash Verified 02/24/24 20:18 animal dander Allergy Unknown SHORTNESS Verified 02/24/24 20:18 OF BREATH Penicillins Allergy Unknown HIVES Verified 02/24/24 20:18 pollen extracts Allergy Unknown SHORTNESS Verified 02/24/24 20:18 OF BREATH COLD AIR Allergy Unknown SHORTNESS Uncoded 02/24/24 20:18 OF BREATH Dust Allergy Unknown SHORTNESS Uncoded 02/24/24 20:18 OF BREATH PERFUME Allergy Unknown SHORTNESS Uncoded 02/24/24 20:18 OF BREATH Medications Home Medications Medication Instructions Recorded Confirmed Last Taken ascorbic acid (vitamin C) 500 mg 500 mg PO QAM 06/06/23 02/24/24 02/24/24 tablet (Vitamin C) carvedilol 6.25 mg tablet 6.25 mg PO BID 06/06/23 02/24/24 02/24/24 08:00 hydrochlorothiazide 12.5 mg tablet 12.5 mg PO QAM 06/06/23 02/24/24 02/24/24 ibuprofen 200 mg tablet 400 mg PO Q6H PRN Pain 06/06/23 02/24/24 02/24/24 06:30 loratadine 10 mg tablet 10 mg PO HS 06/06/23 02/24/24 02/23/24 multivit,Ca,iron,obd-LC-wtzirel-renskvt-lans-BQMR 1 cap PO HS 06/06/23 02/24/24 02/23/24 3 mg-133 mcg capsule estradiol 0.01% (0.1 mg/gram) 1 appful vaginal 3XWK 08/18/23 04/30/24 08/15/23 vaginal cream Biotin/Collagen Liquid 1 dose PO DAILY 02/24/24 02/24/24 02/24/24 acetaminophen 650 mg 650 mg PO Q8H PRN Pain 02/24/24 02/24/24 02/24/24 06:30 tablet,extended release (Tylenol 8 Hour) albuterol sulfate 90 mcg/actuation 2 puff inhalation Q4H PRN 02/24/24 02/24/24 Unknown aerosol inhaler Shortness Of Breath Or Wheezing cholecalciferol (vitamin D3) 125 125 mcg PO DAILY 02/24/24 02/24/24 02/24/24 mcg (5,000 unit) tablet (Vitamin D3) Past Medical History Medical History Nausea and vomiting after administration of anesthetic agent Environmental allergies Arthritis Thyroid nodule present History of COVID-2019 Hypertension Asthma well controlled > no res inh Exercise / Class Metabolic Activity II 4-5 Yardwork/Stairs/Walk up hill Past Surgical History Surgical History [place] teeth extracted History of dilatation and curettage History of colonoscopy History of cholecystectomy History of parathyroid surgery 2019 adenoma removed > benign Past Anesthesia History No Hx of Anesthesia Complications and No Family Hx of Anesthesia Complications History of PONV History of PONV and Hx of Motion Sickness Social History Smoking Status: Never smoker Do You Dip or Chew Tobacco: No Hx Alcohol Use: Yes Alcohol type: wine alcohol intake frequency: a few times a month Hx Substance Use: No substance use type: does not use Review of Systems ROS Unobtainable: All systems reviewed & are unremarkable except as noted in HPI & below Physical Exam Vital Signs Last Vital Signs Temp 36.5 C 02/24/24 16:48 Pulse 86 02/24/24 20:10 Resp 27 H 02/24/24 20:10 BP 142/88 H 02/24/24 20:24 Pulse Ox 98 02/24/24 20:24 O2 Del Method Room Air 02/24/24 20:26 ENMT Mouth: no TMJ abnormality Thyromental Distance: > or= 3.5 Finger Breadths Mallampati Class: II Neck normal visual inspection and trachea midline; neck extension not limited Respiratory normal respiratory effort Auscultation: lungs clear to auscultation bilaterally Cardiovascular Rate/Rhythm: regular rate and regular rhythm Heart Sounds: no murmur Musculoskeletal Spine: normal cervical ROM Extremities: full ROM of extremities Neurologic moves all extremities Psychiatric Orientation: alert and oriented x 3 Testing Laboratory Results 02/24/24 17:10 02/24/24 17:10 Electrocardiogram Date: 06/13/23 Findings: + NSR @
--- NOTE | 2024-02-24 20:34 | History & Physical Report ---
Date of Service February 24, 2024 Assessment & Plan (1) Complete small bowel obstruction: Plan: 58-year-old woman with complete small bowel obstruction. It appears she has an internal hernia causing a closed-loop obstruction. I had a long discussion with her concerning this finding. We discussed the risks and benefits of an exploratory laparotomy with lysis of adhesions, possible bowel resection. We discussed the postoperative course and recovery.. All her questions were answered, and she is agreeable to proceed. Consent has been obtained. Will take her to the operating room at the earliest convenience. History of Present Illness Primary Care Provider: Demetrius Rich MD 58-year-old woman with past surgical history of laparoscopic cholecystectomy as well as a hysterectomy presents with 8 hours of severe mid abdominal pain. She ate breakfast this morning and did not have any problems. Around noon she developed severe pain nausea and vomiting which has persisted and worsened. She denies fevers and chills. She denies heart problems, chest pain, shortness of breath. CT scan demonstrates what appears to be a closed-loop obstruction with an internal hernia. Allergies Allergy/AdvReac Type Severity Reaction Status Date / Time bee venom protein (honey bee) Allergy Severe swelling Verified 02/24/24 20:18 at site and spreads lisinopril Allergy Mild Rash Verified 02/24/24 20:18 animal dander Allergy Unknown SHORTNESS Verified 02/24/24 20:18 OF BREATH Penicillins Allergy Unknown HIVES Verified 02/24/24 20:18 pollen extracts Allergy Unknown SHORTNESS Verified 02/24/24 20:18 OF BREATH COLD AIR Allergy Unknown SHORTNESS Uncoded 02/24/24 20:18 OF BREATH Dust Allergy Unknown SHORTNESS Uncoded 02/24/24 20:18 OF BREATH PERFUME Allergy Unknown SHORTNESS Uncoded 02/24/24 20:18 OF BREATH Home Medications Medication Instructions Recorded Confirmed Type ascorbic acid (vitamin C) 500 mg 500 mg PO QAM 06/06/23 02/24/24 History tablet (Vitamin C) carvedilol 6.25 mg tablet 6.25 mg PO BID 06/06/23 02/24/24 History hydrochlorothiazide 12.5 mg tablet 12.5 mg PO QAM 06/06/23 02/24/24 History ibuprofen 200 mg tablet 400 mg PO Q6H PRN Pain 06/06/23 02/24/24 History loratadine 10 mg tablet 10 mg PO HS 06/06/23 02/24/24 History multivit,Ca,iron,[id number] 1 cap PO HS 06/06/23 02/24/24 History 3 mg-133 mcg capsule estradiol 0.01% (0.1 mg/gram) 1 appful vaginal 3XWK 06/13/23 02/24/24 History vaginal cream Biotin/Collagen Liquid 1 dose PO DAILY 02/24/24 02/24/24 History acetaminophen 650 mg 650 mg PO Q8H PRN Pain 02/24/24 02/24/24 History tablet,extended release (Tylenol 8 Hour) albuterol sulfate 90 mcg/actuation 2 puff inhalation Q4H PRN 02/24/24 02/24/24 History aerosol inhaler Shortness Of Breath Or Wheezing cholecalciferol (vitamin D3) 125 125 mcg PO DAILY 02/24/24 02/24/24 History mcg (5,000 unit) tablet (Vitamin D3) Past Med/Surg History Medical History Nausea and vomiting after administration of anesthetic agent Environmental allergies Arthritis Thyroid nodule present History of COVID-19 2019 Hypertension Asthma well controlled > no res inh Surgical History [place] teeth extracted History of dilatation and curettage History of colonoscopy History of cholecystectomy History of parathyroid surgery 2019 adenoma removed > benign Social History Smoking Status: Never smoker Second Hand Exposure: No; Do You Dip or Chew Tobacco: No; Hx Alcohol Use: Yes Alcohol type: wine Hx Substance Use: No Preferred Language: Kazakh Communication 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: No Beliefs That Will Affect Care: None Current Living Situation: Spouse Feels Safe at Home: Yes Assistive Devices: Glasses Review of Systems Review of Systems: All systems reviewed & are unremarkable except as noted in HPI & below Physical Exam Constitutional: WD/WN, vitals as above Eyes: PERRL, conjunctivae normal, anicteric sclerae Neck: trachea midline, no thyromegaly Respiratory: normal respiratory effort; no respiratory distress and no labored breathing Cardiovascular: Rate/Rhythm: regular rate and regular rhythm Gastrointestinal (Abdomen): Inspection/Auscultation: abdomen normal to inspection Percussion/Palpation: + abdomen tender ( Mid abdomen) and abdomen soft; no guarding and abdomen not rigid Skin: no rashes, warm and dry Psychiatric: A+Ox3, euthymic affect Results & Data Results & Data Vital Signs (Past 12 Hours) Vital Signs Temp Pulse Resp BP BP Pulse Ox O2 Del Method 02/24/24 20:26 Room Air 02/24/24 20:24 142/88 H 02/24/24 20:24 98 Room Air 02/24/24 20:10 86 27 H 96 Room Air 02/24/24 20:00 85 22 96 02/24/24 19:50 82 21 95 02/24/24 19:40 77 18 95 02/24/24 19:30 75 29 H 99 02/24/24 19:20 93 H 16 92 02/24/24 19:13 77 21 99 02/24/24 19:10 76 15 99 02/24/24 19:00 72 23 99 02/24/24 18:55 77 02/24/24 18:53 73 22 100 02/24/24 16:48 36.5 C 73 18 170/90 H 100 Room Air Laboratory Results 02/24/24 Range/Units 17:10 WBC 12.92 H (4.8-10.8) K/ul RBC 4.33 (4.20-5.40) M/uL Hgb 13.8 (12.0-16.0) g/dl Hct 39.9 (37.0-47.0) % MCV 92.1 (80.0-100.0) fL MCH 31.9 (25.0-34.0) pg MCHC 34.6 (32.0-36.0) g/dL RDW Std Deviation 43.1 (36.4-46.3) fL RDW Coeff of Haris 12.8 (11.5-14.5) % Plt Count 197 (130-400) K/uL MPV 11.0 (9.4-12.4) fL Immature Gran % (Auto) 0.4 % Neut % (Auto) 88.6 % Lymph % (Auto) 5.4 % [place]anan % (Auto) 3.5 % Eos % (Auto) 1.9 % Baso % (Auto) 0.2 % Neut # (Auto) 11.44 H (1.40-6.50) K/uL Lymph # (Auto) 0.70 L (1.20-3.40) K/uL [place] # (Auto) 0.45 (0.11-0.59) K/uL Eos # (Auto) 0.25 (0.00-0.50) K/uL Baso # (Auto) 0.03 (0.00-0.20) K/uL Immature Gran # (Auto) 0.05 (0.01-0.20) K/uL Sodium 138 (136-145) mmol/L Potassium 3.7 (3.5-5.1) mmol/L Chloride 101 (98-107) mmol/L Carbon Dioxide 28 (21-32) mmol/L Anion Gap 9 (3-11) BUN 12 (6-23) mg/dl Creatinine 0.66 (0.6-1.2) mg/dl Est Cr Clr Drug Dosing 95.0 ml/min Est GFR ( Amer) 112.9 ml/min Est GFR (Non-Af Amer) 97.4 ml/min BUN/Creatinine Ratio 18.2 (10-20) Glucose 109 H (70-99(Fasting)) mg/dl Calcium 9.6 (8.6-10.3) mg/dl Total Bilirubin 0.5 (0.2-1.0) mg/dl AST 20 (13-39) U/L ALT 18 (7-52) U/L Alkaline Phosphatase 58 (34-104) U/L Total Protein 7.4 (6.0-8.3) gm/dl Albumin 4.6 (3.4-5.0) gm/dl Globulin 2.8 (2.5-4.0) gm/dl Albumin/Globulin Ratio 1.6 (0.9-2) Lipase 15 (11-82) U/L Diagnostic Findings ABDOMEN AND PELVIS CT WITH IV CONTRAST CT DOSE: 876.53 mGy.cm HISTORY: upper abd pain TECHNIQUE: Multiaxial CT images of the abdomen and pelvis were performed following the use of intravenous contrast. A dose lowering technique was utilized adhering to the principles of ALARA. COMPARISON STUDY: None. FINDINGS: A 4 mm subpleural nodule within the right lower lobe on image 11. The left lung base is clear. No pneumoperitoneum. No pneumatosis. No acute fractures identified. Tiny fat-containing umbilical hernia. Prior cholecystectomy. This likely accounts for the mild central intrahepatic bile duct dilatation. The main portal vein is patent. There is a 2.7 cm enhancing lesion within the left hepatic lobe on image 48. This is indeterminate on this single phase study. Possible subtle 11 mm hypodense lesion within the spleen on image 80. This is indeterminate but could represent the normal heterogeneous enhancement of the spleen. The pancreas, adrenal glands, and kidneys are unremarkable. No hydronephrosis. No retroperitoneal lymphadenopathy. Normal caliber abdominal aorta. No pelvic lymphadenopathy or pelvic free fluid. The bladder is unremarkable. Prior hysterectomy. Colonic diverticulosis. No evidence for acute diverticulitis. Normal appendix. Multiple dilated and fluid-filled loops of proximal to mid small bowel. There are 2 separate transition points within the midabdomen best seen on images 156 and 172. The loops of small bowel between these transition points are distended and fluid-filled. Therefore, this is consistent with a closed loop obstruction. This is likely due to an internal hernia. There is mild mesenteric edema within these dilated loops of small bowel. IMPRESSION: 1. Small bowel obstruction as described above which appears to be a closed loop type obstruction with 2 separate transition points. This appears to be secondary to an internal hernia within the midabdomen. Therefore, urgent surgical consultation recommended. 2. A 4 mm subpleural nodule within the right lower lobe. Please refer to the chart below for recommended follow-up. 3. A 2.7 cm enhancing lesion within the left hepatic lobe. This is indeterminate but may represent focal nodular hyperplasia or a hemangioma. Follow-up nonemergent abdominal MRI can be used for confirmation. 4. Questionable 11 mm hypodense lesion within the spleen. This could also be reassessed on follow-up MRI. 5. Additional findings as described above.
[2024-02-24] MEDS ORDERED: HYDROmorphone INJ 2 MG/ML SYR/VIAL ONE (21:22)
[2024-02-24] MEDS ORDERED: SUCCINYLCHOLINE CHLORIDE 20 MG/ML 10 ML VIAL IV ONE (21:22)
[2024-02-24] MEDS ORDERED: SUGAMMADEX SODIUM 200 MG/2 ML VIAL IV ONE (21:24)
--- NOTE | 2024-02-24 21:57 | Post Operative Brief Note ---
Immediate Post Op Note v1 Date of Surgery February 24, 2024 Pre & Post Diagnosis Operation Date: 02/24/24 20:00 Pre-Op Diagnosis: ABD PAIN, VOMIT Post-Op Diagnosis: ABD PAIN, VOMIT I identified the patient and participated in the time-out.: Yes Procedure Operation Date: 02/24/24 20:00 Actual Procedures p Exploratory Laparotomy Lysis of Adhesions - Avtar Stevenson MD Surgeon Avtar Stevenson MD Parcel Wrapper None Estimated Blood Loss 10 Findings Consistent with Post-Op Diagnosis
--- NOTE | 2024-02-24 22:00 | Operative Report ---
Post Operative Report Pre & Post Diagnosis Operation Date: 02/24/24 20:00 Pre-Op Diagnosis: ABD PAIN, VOMIT Post-Op Diagnosis: ABD PAIN, VOMIT I identified the patient and participated in the time-out.: Yes Procedure Operation Date: 02/24/24 20:00 Actual Procedures p Exploratory Laparotomy Lysis of Adhesions - Avtar Stevenson MD Surgeon Avtar Stevenson MD Nitrocellulose Operator None Estimated Blood Loss 10 Findings Consistent with Post-Op Diagnosis omental adhesions causing internal hernia and closed-loop bowel obstruction. All bowel was viable Specimens none Drains none Anesthesia Type General Complications none Description of Procedure patient was taken to the operating room, placed supine on the operating table. A timeout was performed, perioperative antibiotics were administered, SCD boots were placed. After adequate anesthesia and analgesia was obtained, A Montes catheter was placed, and the abdomen was prepped and draped in the normal sterile fashion. midline incision was made with a 10 blade scalpel and carried down to the level of the fascia. The fascia was opened at the umbilicus, the peritoneal cavity was entered. The incision was opened to its fullest extent of the wound. A small amount of murky fluid was returned. The omentum was retracted to the top of the wound exposing the small bowel. We began to run the small bowel down towards the terminal ileum. A few adhesions of the omentum and colonic fat were noted which were trapping some of the small bowel and a loop pattern. These adhesions were lysed with the electrocautery. This freed up the bowel. We were then able to run the bowel down to the terminal ileum. From the terminal ileum, the bowel was run back to the ligament of Treitz. All bowel was viable and normal. There was no further obstruction noted. The bowel was returned to its normal position within the abdominal cavity. The omentum was placed overlying this. The fascia was closed with a running #1 PDS suture. The skin was closed with surgical clips. Dressings were applied. She tolerated the procedure without complication, was transferred in stable condition to the PACU. All instrument, needle, and sponge counts were correct at the end of the case. I performed the procedure. I attest to the content of the Intraoperative Record and any orders documented therein. Any exceptions are noted below.
[2024-02-24] MEDS: fentaNYL citrate PF 100 MCG/2 ML VIAL IV PRN (22:10)
[2024-02-24] MEDS ORDERED: KETOROLAC 30 MG/ML VIAL ONE (22:11)
--- NOTE | 2024-02-24 22:22 | Anesthesiology Progress Note ---
Date of Service February 24, 2024 Anesthesia Post Procedure Vital Signs Vital Signs: Temp Pulse Pulse Resp BP BP Pulse Ox 02/24/24 22:05 36.2 C L 87 22 161/83 H 98 02/24/24 20:26 02/24/24 20:24 142/88 H 02/24/24 20:24 98 02/24/24 20:10 86 27 H 96 02/24/24 20:00 85 22 96 02/24/24 19:50 82 21 95 02/24/24 19:40 77 18 95 02/24/24 19:30 75 29 H 99 02/24/24 19:20 93 H 16 92 02/24/24 19:13 77 21 99 02/24/24 19:10 76 15 99 02/24/24 19:00 72 23 99 02/24/24 18:55 77 02/24/24 18:53 73 22 100 02/24/24 16:48 36.5 C 73 18 170/90 H 100 O2 Del Method O2 Flow Rate 02/24/24 22:05 Oxymask 6 02/24/24 20:26 Room Air 02/24/24 20:24 02/24/24 20:24 Room Air 02/24/24 20:10 Room Air 02/24/24 20:00 02/24/24 19:50 02/24/24 19:40 02/24/24 19:30 02/24/24 19:20 02/24/24 19:13 02/24/24 19:10 02/24/24 19:00 02/24/24 18:55 02/24/24 18:53 02/24/24 16:48 Room Air Pain Intensity Abdomen: Pain Intensity: 6 Transfer of Care Handoff Completed per policy Notes Mental Status: alert / awake / arousable Patient Amnestic to Procedure: Yes Nausea / Vomiting: adequately controlled Pain: adequately controlled Airway Patency, RR, SpO2: stable & adequate BP & HR: stable & adequate Hydration State: stable & adequate Anesthetic Complications: no major complications apparent and Pt Satisfied with anesthetic care
[2024-02-24] MEDS: HYDROmorphone INJ 0.5 MG/0.5 ML SYR ONE (22:30)
[2024-02-24] MEDS: HYDROmorphone INJ 1 MG/ML SYRINGE IV PRN (22:30)
[2024-02-24] MEDS ORDERED: PROMETHAZINE HCL 12.5 MG in SODIUM CHLORIDE 0.9% 50 ML IV PRN (23:08)
[2024-02-24] MEDS ORDERED: MoRPHine SULFATE 4 MG/ML 1 ML CARP\\VIAL IV PRN (23:08)
[2024-02-24] MEDS ORDERED: diphenhydrAMINE 50 MG/ML VIAL IV PRN (23:08)
[2024-02-24] MEDS: SODIUM CHLORIDE 0.9% 1,000 ML IV SCH (23:29)
[2024-02-24] MEDS: cefOXitin SOD 1,000 MG VIAL ONE (23:56)
[2024-02-24] MEDS: fentaNYL citrate PF 100 MCG/2 ML VIAL ONE (23:57)
[2024-02-25 00:05] LABS: Appearance Urine Clear (Clear); Bilirubin Urine Negative (Negative); Blood Urine Trace (Negative); Color Urine Yellow; Glucose Urine UA Negative (Negative); Ketones Urine 1+ (Negative); Leukocyte Esterase Urine Negative (Negative); Nitrite Urine Negative (Negative); Protein Urine Negative (Negative); Specific Gravity Urine 1.036 (1.000-1.030); Urobilinogen Urine Negative (Negative)
[2024-02-25] MEDS: MoRPHine SULFATE 2 MG/ML CARP IV PRN (00:11)
[2024-02-25 00:21] LABS: Bacteria Urine None Seen (None Seen); Epithelial Cell Urine 0-2 /hpf (0-2); RBC Urine 0-2 /hpf (0-2); WBC Urine 0-5 /hpf (0-5)
[2024-02-25] MEDS: KETOROLAC 30 MG/ML VIAL IV PRN (04:19)
--- NOTE | 2024-02-25 07:36 | XRay Report ---
KUB HISTORY: NG placement COMPARISON: Abdomen and pelvis CT 02/24/2024. FINDINGS: Nasogastric tube terminates in the mid stomach. Mildly dilated gas-filled loops of small [place] wel again noted consistent the patient's known small bowel obstruction. No renal calculi. No uretera l calculi. No pneumoperitoneum or pneumatosis. IMPRESSION: 1. Nasogastric tube terminates in the stomach. 2. Small bowel obstruction pattern again noted. ACT 112: Negative or not required by law. Electronically signed by: Ahser Franco M.D. 02/25/2024 7:35 AM
[2024-02-25] MEDS: ENOXAPARIN INJ 40 MG/0.4 ML SYR SQ SCH (09:15)
--- NOTE | 2024-02-25 14:54 | Surgery Progress Note ---
Date of Service February 25, 2024 Assessment & Plan (1) Complete small bowel obstruction: Plan: POD # 1 s/p ex lap lysis of adhesions avss postop pain controlled no return of bowel function yet minimal NGT output Plan: continue pain management continue NGT IV fluids encouraged ambulation and incentive lovenox and scds repeat am labs Admission and Anticipated Discharge Date Admission Date: February 24, 2024 Subjective feeling okay pain controlled, has not had any pain medication since this morning no n,v no chest pain or shortness of breath power catheter just removed not passing any gas has ambulated [facility] Physical Exam Constitutional: WD/WN, vitals as above cooperative and comfortable; no acute distress and not ill appearing Respiratory: normal respiratory effort; no respiratory distress Gastrointestinal (Abdomen): Inspection/Auscultation: abdomen normal to inspection and + abdominal surgical incision (covered with c/d/i dressing); abdomen not distended Percussion/Palpation: + abdomen tender (mild at midline incision) and abdomen soft; no guarding, abdomen not rigid and abdomen not firm Skin: no rashes, warm and dry Psychiatric: A+Ox3, euthymic affect Results & Data Vital Signs (Past 12 Hours) Vital Signs Temp Pulse Resp BP Pulse Ox O2 Del Method 02/25/24 11:53 36.8 C 74 14 162/82 H 96 Room Air 02/25/24 07:30 36.6 C 77 14 134/86 97 Room Air 02/25/24 06:00 36.7 C 74 18 151/84 H 95 Room Air
--- OUTSIDE RECORDS SUMMARY | 2024-02-26 00:42 | External Medical Summary | Summary of Care ---
Author Name Unknown Organization [facility] Address [address] [place] [address] Phone [phone] Care Team Providers Care Felt Finishing Supervisor Name Role Phone Demetrius Rich MD Primary Care Provide r Reason for Visit * Reason Comments Re-Check Encounter Details Date Type Department Care Team (Late st Contact Info) Description 12/05/2023 4:20 PM EST Office Visit Family Medicine [address] [phone] Demetrius Rich MD [address] [place] [address] [place] [phone] Essential hypertension with goal blood pressure less than 140/90*; Moderate persistent asthma without complication; History of hyperparathyroidism; S/P total hysterectomy and bilateral salpingo-oophorectomy Allergies Active Allergy Reactions Criticality Noted Date Comments Lisinopril Cough 12/06/2011 Penicillins 02/25/2007 rash documented as of this encounter (statuses as of 12/05/2023) Medications Medication Sig Dispensed Refills Start Date End Date Status LORATADINE 10 MG PO CAPS one daily 0 Active Cholecalciferol (VITAMIN D3) 3000 UNITS Tablet Take 5,000 Units by mouth daily. 0 Active MEDICAL INSTRUCTIONS Autumn Medina's goal weight is 135 pounds. 1 Each 1 09/04/2018 Active Ascorbic Acid (VITAMIN C) 100 MG Tablet Take 1 Tablet by mouth in the morning. 0 Active Hair Skin & Nails Advanced Oral Tablet Take by mouth. 0 Active Ventolin HFA 108 (90 Base) MCG/ACT Inhalation Aerosol SolutionIndicatio ns:Viral bronchitis Inhale by mouth 2 Puffs every 4 hours as needed for Congestion or Wheezing. 18 g 0 03/31/2022 Active Elderberry Immune Complex Oral Tablet Chewable Take by mouth. 0 Activ e Estradiol 0.1 MG/GM Vaginal Cream (Estrace)Indicati ons:Vaginal atrophy INSERT 2 GRAMS VAGINALLY IN THE MORNING. 42.5 g 0 11/04/2023 Active Carvedilol 6.25 MG Oral Tablet (Coreg)Indication s:Essential hypertension with goal blood pressure less than 140/90 TAKE ONE TABLET BY MOUTH TWICE DAILY WITH FOOD 180 Tablet 3 11/04/2023 Active hydroCHLOROthiazi de 12.5 MG Oral Tablet (Hydrodiuril)Юлия cations:HTN, goal below 140/90 TAKE ONE TABLET BY MOUTH EVERY DAY 90 Tablet 1 11/19/2023 Active Collagen Hydrolysate Powder Use as directed. 0 Active Ashwagandha 500 MG Oral Capsule Take by mouth. 0 4 Discontinued Magnesium Citrate Oral Solution Take 296 ml solution 5 PM the night before surgery 300 mL 0 06/11/2023 4 Discontinued documented as of this encounter (statuses as of 12/05/2023) Active Problems Problem Noted Date Diagnosed Date S/P total hysterectomy and bilateral salpingo-oo phorectomy 12/05/2023 History of hyperparathyroidism 09/04/2018 Overview: S/p parathyroidectomy Essential hypertension with goal blood pressure less than 140/90 09/13/2009 Overview: Modified per HTN protocol #16. Allergic rhinitis Varicose veins Moderate persistent asthma without complication Migraine aura without headache documented as of this encounter (statuses as of 12/05/2023) Resolved Problems Problem Noted Date Diagnosed Date Resolved Date Hypercalcemia 01/27/2015 02/20/2018 Dyslipidemia, goal LDL below 130 09/15/2013 11/03/2015 Thyroid nodule 12/06/2011 08/07/2017 Asthma with severity to be determined 04/19/2010 06/11/2010 Overview: Per Asthma Taxonomy, "as child ICD-10 update of inactive term Dyslipidemia, goal to be determined 10/05/2009 09/15/2013 Overview: Per Lipid Taxonomy. HTN, goal to be determined 1 11/13/2008 Overview: Modified per HTN protocol #16. Mixed dyslipidemia 9 Overview: Per Lipid Taxonomy. Asthma, allergic 04/19/2010 Overview: "as child" Mixed dyslipidemia 7 documented as of this encounter (statuses as of 12/05/2023) Immunizations Name Administration Dates Next Due COVID-19 mRNA, LNP-s, No Pre serve, 2-Dose Series (Moderna) 10/31/2021,12/07/2020,11/07/2020 Pneumococcal Conjugate Vacci ne, 20-valent ([id number]) 09/06/2022 Seasonal Influenza, PF, 6 M & above, IM , (FluLaval or Fluzone) 07/27/2019,07/27/2018,07/25/2017 Seasonal Influenza, Split, I IV3, With Preserve, Inj 08/27/2016,08/27/2015 TDAP (age 10 and older)(Boostrix) 09/16/2018 TDAP (age 11 and older)(Adacel) 03/11/2008 Zoster Vaccine Recombinant (Shingrix) 03/30/2021 ,01/26/2021 documented as of this encounter Social History Tobacco Use Types Packs/Day Years Used Date Smoking Tobacco: Never Smokeless Tobacco: Never Alcohol Use Standard Drinks/Week Comments Yes 0 (1 standard drink = 0.6 oz pur e alcohol) rarely PHQ-2 Answer Date Recorded PHQ-2 Score 0 09/10/2019 Hunger Vital Sign Answer Date Recorded Within the past 12 months, y ou worried that your food would run out before you got the money to buy more. Never true 05/28/20 23 Within the past 12 months, t he food you bought just didn't last and you didn't have money to get more. Never true 05/28/2023 Sex and Gender Information Value Date Recorded Sex Assigned at Female 04/02/2022 9:54 PM EDT Gender Identity Female 04/02/2022 9:54 PM EDT Sexual Orientation Straight 04/02/2022 9: 54 PM EDT Job Start Date Occupation Industry Not on file Not on file Not on file documented as of this encounter Last Filed Vital Signs Vital Sign Reading Time Taken Comments Blood Pressure 120/74 12/05/2023 4:04 PM EST Pulse 75 12/05/2023 4:04 PM EST Temperature 36.1 C (97 F) 12/05/2023 4:04 PM EST Respiratory Rate - - Oxygen Saturation 96% 12/05/2023 4:04 PM EST Inhaled Oxygen Concentration - - Weight 77.1 kg (170 lb) 12/05/2023 4:04 PM EST Height - - Body Mass Index 30.11 07/21/2023 3:45 PM EDT documented in this encounter Progress Notes * Demetrius Rich MD - 12/05/2023 4:22 PM EST Subjective: Autumn Medina is a 58 year old female. Chief Complaint Patient presents with Re-Check HPI: Brief Clinical History Ms. Medina is a 58 year old woman last seen in Family Medicine 7 months ago (04-11-23). She is not due for eval of any conditions. Had DEN/BSO 06/13/23. Healing well from the surgery. Got stung by a bee last summer while in [place] and left hand/arm swelled pretty significantly. Went to an urgent care and got prednisone and resolved. Did not have any lip swelling or throat swelling or wheezing. Asthma has been doing pretty well. Has not been using her controller inhaler and is doing well without it. Blood pressure has been doing good. No problems with her medications. No chest pain or shortness ofbreath. Has h/o hyperparathyroidism s/p surgery. Recommended to have calcium checked once a year and has been normal. Recently took Augmentin and tolerated it well. Does have penicillin allergy and had rash when she took it around age 21. Results for orders placed or performed in visit on 06/11/23 COMPREHENSIVE METABOLIC PANEL Result Value Ref Range BUN 13 6 - 20 mg/dL Creatinine 0.8 0.5 - 1.0 mg/dL Estimated Glomerular Filtration Rate >90 >=60 mL/min Sodium 142 135 - 146 mmol/L Potassium 4.4 3.5 - 5.1 mmol/L Chloride 103 98 - 107 mmol/L CO2 28 22 - 32 mmol/L Anion Gap 11 7 - 15 mmol/L Glucose 88 70 - 120 mg/dL Albumin 4.5 3.8 - 5.0 g/dL AST 21 10 - 35 U/L Alkaline Phosphatase 62 35 - 130 U/L Bilirubin, Total 0.4 <=1.2 mg/dL Calcium 9.6 8.4 - 10.2 mg/dL Protein 7.0 6.0 - 8.3 g/dL ALT 21 10 - 35 U/L CBC Result Value Ref Range WBC 7.95 4.00 - 10.80 K/uL RBC 4.60 3.85 - 5.15 M/uL HGB 14.4 12.0 - 15.3 g/dL HCT 42.7 36.0 - 45.2 % MCV 92.8 81.5 - 97.5 fL MCH 31.3 27.0 - 34.0 pg MCHC 33.7 32.0 - 36.0 g/dL RDW 12.9 11.5 - 15.5 % PLT 203 140 - 400 K/uL MPV 11.4 6.6 - 11.1 fL DIFFERENTIAL, AUTOMATED Result Value Ref Range WBC 7.95 4.00 - 10.80 K/uL Neutrophils % 66.1 40.0 - 75.0 % Lymphocytes % 13.7 (L) 18.0 - 42.0 % Monocytes % 7.4 1.0 - 11.0 % Eosinophils % 12.5 (H) 0.0 - 6.0 % Basophils % 0.3 0.0 - 2.0 % Absolute Neutrophils 5.26 1.80 - 7.70 K/uL Absolute Lymphocytes 1.09 1.00 - 4.80 K/ul Absolute Monocytes 0.59 0.00 - 1.10 K/uL Absolute Eosinophils 0.99 (H) 0.00 - 0.70 K/uL Absolute Basophils 0.02 0.00 - 0.20 K/uL PHM: Patient Active Problem List Diagnosis Code Allergic rhinitis J30.9 Essential hypertension with goal blood pressure less than 140/90 I10 Varicose veins I83.90 Moderate persistent asthma without complication J45.40 Migraine aura without headache G43.109 History of hyperparathyroidism Z86.39 Current Outpatient Medications Medication Sig Dispense Refill LORATADINE 10 MG PO CAPS one daily Cholecalciferol (VITAMIN D3) 3000 UNITS Tablet Take 5,000 Units by mouth daily. Ascorbic Acid (VITAMIN C) 100 MG Tablet Take 1 Tablet by mouth in the morning. Hair Skin & Nails Advanced Oral Tablet Take by mouth. Ventolin HFA 108 (90 Base) MCG/ACT Inhalation Aerosol Solution Inhale by mouth 2 Puffs every 4 hours as needed for Congestion or Wheezing. 18 g 0 Elderberry Immune Complex Oral Tablet Chewable Take by mouth. Estradiol 0.1 MG/GM Vaginal Cream (Estrace) INSERT 2 GRAMS VAGINALLY IN THE MORNING. 42.5 g 0 Carvedilol 6.25 MG Oral Tablet (Coreg) TAKE ONE TABLET BY MOUTH TWICE DAILY WITH FOOD 180 Tablet 3 hydroCHLOROthiazide 12.5 MG Oral Tablet (Hydrodiuril) TAKE ONE TABLET BY MOUTH EVERY DAY 90 Tablet 1 Collagen Hydrolysate Powder Use as directed. MEDICAL INSTRUCTIONS Autumn Medina's goal weight is 135 pounds. 1 Each 1 No current facility-administered medications for this visit. Past Medical History: Diagnosis Date Allergic rhinitis Asthma, mild HTN, goal to be determined Hyperparathyroidism (HCC) resvolved s/p parathyroidectomy Migraine aura without headache Varicose veins Past Surgical History: Procedure Laterality Date COLONOSCOPY, DIAGNOSTIC (RECTUM) 07/08/2018 normal, repeat 10 yrs/COLONOSCOPY FLEXIBLE PROXIMAL DIAGNOSTIC performed by Cony White DO at ENDOSCOPY [facility] D&C AFTER DELIVERY DILATION AND CURETTAGE (D&C) 03/16/2021 Dr. Murphy for heavy periods EXPLORE PARATHYROID GLANDS N/A 08/04/2017 PARATHYROIDECTOMY performed [place] Gino Parker DO [place] [facility] removal adenoma IMPACT TOOTH REMOV PART BONY LAPAROSCOPY; CHOLECYSTECTOMY N/A 02/02/2019 LAPAROSCOPIC CHOLECYSTECTOMY performed by Dillon Hamilton MD at OR [facility] US HEAD AND NECK 03/27/2010 subcentimeter left thyroid nodule, repeat in 6 mos Social History Socioeconomic History Marital status: Spouse name: Not on file Number of children: Not on file Years of education: Not on file Highest education level: Not on file Occupational History Not on file Tobacco Use Smoking status: Never Smokeless tobacco: Never Vaping Use Vaping Use: Never used Substance and Sexual Activity Alcohol use: Yes Comment: rarely Drug use: No Sexual activity: Yes Partners: Male Other Topics Concern Not on file Social History Narrative Not on file Social Determinants of Health Financial Resource Strain: Not on file Food Insecurity: No Food Insecurity (05/28/2023) Hunger Vital Sign Worried About Running Out of Food in the Last Year: Never true Ran Out of Food in the Last Year: Never true Transportation Needs: Not on file Physical Activity: Not on file Stress: Not on file Social Connections: Not on file Intimate Partner Violence: Not on file Housing Stability: Not on file Review of patient's allergies indicates: Allergen Reactions Lisinopril Cough Pcn [Penicillins] rash Objective: BP 120/74 | Pulse 75 | Temp 36.1 C (97 F) (Tympanic) | Wt 77.1 kg (170 lb) | SpO2 96% | BMI 30.11 kg/m | BSA 1.85 m Physical Exam: General: alert, healthy, no distress, well nourished, and well developed Head: Normocephalic, No masses, lesions, tenderness or abnormalities Eye Exam: PERRLA, extraocular movements intact, conjunctiva are pink and non- injected, sclera clear Ears: External ears normal, Canals clear, TM's Normal Nose: no mucosal erythema, no mucosal edema, no purulent discharge Oropharynx: no exudate, no erythema, lips, buccal mucosa, and tongue normal, and mucous membranes are moist Neck: supple, no adenopathy, no bruits Heart: regular rate & rhythm, no murmur, and no gallops Lungs: chest symmetric with normal AP diameter, no chest deformities noted, no chest wall tenderness, lungs clear to auscultation Extremities: no edema, no clubbing, no cyanosis Neuro Exam: alert & oriented x 3 with fluent speech, no focal motor/sensory deficits Extensive ROS Constitutional (f/c/wt/vision/hearing): Negative Resp (cough/sob/marley): Negative CV (cp/palp/fluttering/diaphoresis/marley/pnd):see above hpi GI (n/v/d/hrtburn): Negative Endo (hair/cold or heat intol/ 3 p's): Negative Neuro (shaking/weak/fatigu/parasthesi/): Negative Skin (rash/easy bruis/xerosis): Negative Psy (si/hi/halluc/): Negative (nocturia/hesit/drib/sexual review): Negative Lymph (swollen glands/b sx's/: Negative ASSESSMENT: Essential hypertension with goal blood pressure less than 140/90 (Primary)--controlled. Continue carvedilol 6.25 mg twice daily and HCTZ 12.5 mg daily. - BASIC METABOLIC PANEL; Future; Expected date: 06/04/2024 Moderate persistent asthma without complication--has been controlled with just PRN albuterol. Suspect elevated eosinophils due to asthma. - CBC WITH WBC DIFFERENTIAL; Future; Expected date: 06/04/2024 History of hyperparathyroidism--check calcium yearly. Is s/p parathyroid surgery. - BASIC METABOLIC PANEL; Future; Expected date: 06/04/2024 S/P total hysterectomy and bilateral salpingo-oophorectomy--healed well from surgery. Follow Up: Return in about 6 months (around 06/04/2024) for Clinic Visit. | For: Clinic Visit PLAN: Continue present medication(s): Schedule labs: CBC w/diff, BMP at next appointment Patient education: discussed weight/diet/exericse. Follow up: in 6 month(s). Demetrius Rich MD documented in this encounter Nursing Notes * Adela Hicks LPN - 12/05/2023 4:03 PM EST 6 month recheck No concerns today documented in this encounter Plan of Treatment Upcoming Encounters Date Type Department Care Team (Late st Contact Info) Description 03/05/2024 1:30 PM EDT Imaging Radiology [facility] [address] [phone] 08/06/2024 5:15 PM EDT Office Visit Gynecology/Obstetrics [facility] [address] [phone] Debbie Harding PA-C [address] [phone] 10/29/2024 8:40 AM EST Office Visit Family Medicine [facility] [place] [place] [phone] Demetrius Rich MD [address] [place] [address] [place] [phone] Scheduled Orders Name Type Priority Associated Diagnoses Orde r Schedule BASIC METABOLIC PANEL Lab Routine Essential hypertension with goal blood pressure less than 140/90 History of hyperparathyroidism Expected: 06/04/2024 (Approximate), Expires: 12/04/2024 CBC WITH WBC DIFFERENTIAL Lab Routine Moderate persistent asthma without complication Expected: 06/04/2024 (Approximate), Expires: 12/05/2024 Scheduled Procedures Name Priority Associated Diagnoses Date/Ti me COLONOSCOPY FLEXIBLE PROXIMA L DIAGNOSTIC Recall Encounter for screening colonoscopy Health Maintenance Due Date Last Done Comments Hepatitis B (1 of 3 - 3-dose series) 1965 HPV/Co-Test 1995 Cologuard 2010 Fecal Occult Blood Test 2010 Sigmoidoscopy 2010 Pap Smear 09/04/2019 09/04/2016, 06/28, 09/26/2009 (Done elsewhere), Additional history exists Depression Screening 09/10/2020 09/10/2019 COVID-19 Vaccine ( season) 2023 10/31/2021, 12/07/2020, 11/07/2020 Influenza Vaccine (FLU shot) (#1) 2023 07/27/2019, 07/27/2018, 07/25/2017, Additional history exists Mammogram 03/21/2024 03/21/2023, 02/25, 02/28/2023, Additional history exists GFR 06/11/2024 06/11/2023, /0 01/2023, 02/15/2022, Additional history exists Lipid Panel 01/26/2026 01/26/2021, 010 05/2016, 11/27/2013, Additional history exists Albumin/Creatinine Ratio 01/28/2026 01/28/2023, 01/26 Diabetes Screening 06/11/2026 06/11/2023, 0 01/28/2023, 02/15/2022, Additional history exists Colonoscopy 07/08/2028 07/08/2018, 07/08/2018 Colorectal Cancer Screening 07/08/2028 DTaP,Tdap,and Td Vaccines (3 - Td or Tdap) 09/16/2028 09/16/2018, 03/11/2008 Zoster Vaccines Completed 03/30/2021, 01/26/2021 Pneumococcal Vaccine: Pediatrics (0 to 5 Years) and At-Risk Patients (6 to 64 Years) Completed 09/06/2022 Cervical Cancer Screening Discontinued GARDASIL-HPV IMMUNIZATION SERIES Aged Out No longer eligible based on patient's age to complete this topic MENINGOCOCCAL (MENACTRA/MENVEO) Aged Out No longer eligible based on patient's age to complete this topic documented as of this encounter Medical Devices Not on filedocumented as of this encounter Visit Diagnoses Diagnosis Essential hypertension with goal blood pressure less than 140/90- Primary Moderate persistent asthma without complication Unspecified asthma History of hyperparathyroidism Personal history of other endocrine, metabolic, and immunity disorders S/P total hysterectomy and bilateral salpingo-oophorectomy Acquired absence of both cervix and uterus documented in this encounter Advance Directives Latest Code Status on File Code Status Date Activated Date Inactivated Comments Full Code 02/02/2019 10:42 AM 02/02/2019 4:11 PM This o rder reflects the patients wishes and were consensually agreed upon. Code Status History Code Status Date Activated Date Inactivated Comments Full Code 08/04/2017 11:48 AM 08/04/2017 8:50 PM This order reflects the patients wishes and were consensually agreed upon. Question Answer Comments Discussion of Advance Directives occurred with: Not Discussed Does the patient have a Living Will? No Does the patient have Health Care Power of Non Licensed Nuclear Plant Operator? No Care Teams Felt Finishing Supervisor Relationship Specialty Start Date End Date Demetrius Rich MD [address] [place] [address] [place] [phone] PCP - General Family Medicine 07/29/14 documented as of this encounter
--- OUTSIDE RECORDS SUMMARY | 2024-02-26 00:42 | External Medical Summary | Summary of Care ---
Author Name Unknown Organization [facility] Address [address] [place] [address] Phone [phone] Care Team Providers Care [employer] Miner Name Role Phone Ambreen Rich MD Primary Care Provide r Reason for Visit * Reason Onset Date Comments Medication Refill 11/02/2023 Encounter Details Date Type Department Care Team (Late st Contact Info) Description 11/02/2023 Refill Family Medicine [address] [phone] Ambreen Rich MD [address] [place] [phone] Essential hypertension with goal blood pressure less than 140/90 Allergies Active Allergy Reactions Criticality Noted Date Comments Lisinopril Cough 12/06/2011 Penicillins 02/25/2007 rash documented as of this encounter (statuses as of 11/04/2023) Medications Medication Sig Dispensed Refills Start Date [...] HFA 108 (90 Base) MCG/ACT Inhalation Aerosol SolutionIndication s:Viral bronchitis Inhale by mouth 2 Puffs every 4 hours as needed for Congestion or Wheezing. 18 g 0 03/31/2022 Active Additional Information Patient not taking.Reported on 04/11/2023 Elderberry Immune Complex Oral Tablet Chewable Take by mouth. 0 Activ e Ashwagandha 500 MG Oral Capsule Take by mouth. 0 Active hydroCHLOROthiazid e 12.5 MG Oral Tablet (Hydrodiuril)Indic ations:HTN, goal below 140/90 TAKE ONE TABLET BY MOUTH EVERY DAY 90 Tablet 2 02/27/2023 Active Magnesium Citrate Oral Solution Take 296 ml solution 5 PM the night before surgery 300 mL 0 06/11/2023 Active Estradiol 0.1 MG/GM Vaginal Cream (Estrace)Indicatio ns:Vaginal atrophy VAGINALLY INSERT 2 GRAMS IN THE MORNING 42.5 g 0 09/30/2023 Active Carvedilol 6.25 MG Oral Tablet (Coreg)Indications :Essential hypertension with goal blood pressure less than 140/90 TAKE ONE TABLET BY MOUTH TWICE DAILY WITH FOOD 180 Tablet 3 11/04/2023 Active Carvedilol 6.25 MG Oral Tablet (Coreg)Indications :Essential hypertension with goal blood pressure less than 140/90 TAKE ONE TABLET BY MOUTH TWICE DAILY WITH FOOD 180 Tablet 3 11/01/2022 4 Discontinue d(Refill) documented as of this encounter (statuses as of 11/04/2023) Active Problems Problem Noted Date Diagnosed Date History of hyperparathyroidism 09/04/2018 Overview: S/p parathyroidectomy Essential hypertension with goal blood pressure less than 140/90 09/13/2009 Overview: Modified per HTN protocol #16. Allergic rhinitis Varicose veins Moderate persistent asthma without complication Migraine aura without headache documented as of this encounter (statuses as of 11/04/2023) Resolved Problems Problem Noted Date Diagnosed Date [...] as of this encounter (statuses as of 11/04/2023) Immunizations Name Administration Dates Next Due COVID-19 mRNA, LNP-s, No Pre serve, 2-Dose Series (Moderna) 10/31/2021,12/07/2020,11/07/2020 Pneumococcal Conjugate Vacci ne, 20-valent ([id number]) 09/06/2022 Seasonal Influenza, PF, 6 M & [...] on file documented as of this encounter Miscellaneous Notes * Telephone Encounter - Ran Mnier [facility] - 11/04/2023 6:27 AM ESTSigned Prescriptions: Disp Refills Carvedilol 6.25 MG Oral Tablet (Coreg) 180 Ta*3 Sig: TAKE ONE TABLET BY MOUTH TWICE DAILY WITH FOODAuthorizing Provider: AMBREEN RICHOrderbimal User: RAN MINER documented in this encounter Plan of Treatment Upcoming Encounters Date Type Department Care Team (Late st Contact Info) Description 12/05/2023 4:20 PM EST Office Visit Family Medicine [address] [place] [phone] Ambreen Rich MD [address] [place] [address] [place] [phone] 03/05/2024 1:30 PM EDT Imaging Radiology [facility] [address] [phone] 08/06/2024 5:15 PM EDT Office Visit Gynecology/Obstetrics [facility] [address] [phone] Debbie Harding PA-C [address] [phone] Scheduled Procedures Name Priority Associated Diagnoses Date/Ti me COLONOSCOPY FLEXIBLE PROXIMA L DIAGNOSTIC Recall Encounter for screening colonoscopy Health Maintenance Due Date Last Done Comments Hepatitis B (1 of 3 - 3-dose series) 1965 HPV/Co-Test 1995 Cologuard 2010 Fecal Occult Blood Test 2010 Sigmoidoscopy 2010 Cervical Cancer Screening 09/04/2019 Pap Smear 09/04/2019 09/04/2016, 06/28, 09/26/2009 (Done elsewhere), Additional history exists Depression Screening 09/10/2020 09/10/2019 COVID-19 Vaccine ( season) 2023 10/31/2021, 12/07/2020, 11/07/2020 Influenza Vaccine (FLU shot) (#1) 2023 07/27/2019, 07/27/2018, 07/25/2017, Additional history exists Mammogram 03/21/2024 03/21/2023, 050 02/2023, 02/22/2022, Additional history exists GFR 06/11/2024 06/11/2023, 04/0 01/2023, 02/15/2022, Additional history exists Lipid Panel 01/26/2026 01/26/2021, 01/0 05/2016, 11/27/2013, Additional history exists Albumin/Creatinine Ratio 01/28/2026 01/28/2023, 01/26 Diabetes Screening 06/11/2026 06/11/2023, 0 01/28/2023, 02/15/2022, Additional history exists Colonoscopy 07/08/2028 07/08/2018, 07/08/2018 Colorectal Cancer Screening 07/08/2028 DTaP,Tdap,and Td Vaccines (3 - Td or Tdap) 09/16/2028 09/16/2018, 03/11/2008 Zoster Vaccines Completed 03/30/2021, 01/26/2021 Pneumococcal Vaccine: Pediatrics (0 to 5 Years) and At-Risk Patients (6 to 64 Years) Completed 09/06/2022 GARDASIL-HPV IMMUNIZATION SERIES Aged Out No longer eligible based on patient's age to complete this topic MENINGOCOCCAL (MENACTRA/MENVEO) Aged Out No longer eligible based on patient's age to complete this topic documented as of this encounter Medical Devices Not on filedocumented as of this encounter Visit Diagnoses Diagnosis Essential hypertension with goal blood pressure less than 140/90 documented in this encounter Advance Directives Latest [...] the patient have Health Care Power of Waste Machine Operator? 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
--- OUTSIDE RECORDS SUMMARY | 2024-02-26 00:42 | External Medical Summary | Summary of Care ---
Author Name Unknown Organization [facility] Address [address] [place] [address] Phone [phone] Care Team Providers Care Tow Mate Name Role Phone Demetrius Rich MD Primary Care Provide r Reason for Visit * Reason Onset Date Comments Health Maintenance 10/29/2023 Encounter Details Date Type Department Care Team (Late st Contact Info) Description 10/29/2023 Telephone Family Medicine [address] [phone] Demetrius Rich MD [address] [place] [id number] Health Maintenance Allergies Active Allergy Reactions Criticality Noted Date Comments Lisinopril Cough 12/06/2011 Penicillins 02/25/2007 rash documented as of this encounter (statuses as of 10/29/2023) Medications Medication Sig Dispensed Refills Start Date [...] HFA 108 (90 Base) MCG/ACT Inhalation Aerosol SolutionIndications :Viral bronchitis Inhale by mouth 2 Puffs every 4 hours as needed for Congestion or Wheezing. 18 g 0 03/31/2022 Active Additional Information Patient not taking.Reported on 04/11/2023 Elderberry Immune Complex Oral Tablet Chewable Take by mouth. 0 Active Carvedilol 6.25 MG Oral Tablet (Coreg)Indications: Essential hypertension with goal blood pressure less than 140/90 TAKE ONE TABLET BY MOUTH TWICE DAILY WITH FOOD 180 Tablet 3 11/01/2022 Active Ashwagandha 500 MG Oral Capsule Take by mouth. 0 Active hydroCHLOROthiazide 12.5 MG Oral Tablet (Hydrodiuril)Indica tions:HTN, goal below 140/90 TAKE ONE TABLET BY MOUTH EVERY DAY 90 Tablet 2 02/27/2023 Active Magnesium Citrate Oral Solution Take 296 ml solution 5 PM the night before surgery 300 mL 0 06/11/2023 Active Estradiol 0.1 MG/GM Vaginal Cream (Estrace)Indication s:Vaginal atrophy VAGINALLY INSERT 2 GRAMS IN THE MORNING 42.5 g 0 09/30/2023 Active documented as of this encounter (statuses as of 10/29/2023) Active Problems Problem Noted Date Diagnosed Date History of hyperparathyroidism 09/04/2018 Overview: S/p parathyroidectomy Essential hypertension with goal blood pressure less than 140/90 09/13/2009 Overview: Modified per HTN protocol #16. Allergic rhinitis Varicose veins Moderate persistent asthma without complication Migraine aura without headache documented as of this encounter (statuses as of 10/29/2023) Resolved Problems Problem Noted Date Diagnosed Date Resolved Date Hypercalcemia 01/27/2015 02/20/2018 Dyslipidemia, goal LDL below 130 09/15/2013 11/03/2015 Thyroid nodule 12/06/2011 08/07/2017 Asthma with severity to be determined 04/19/2010 06/11/2010 Overview: Per Asthma Taxonomy, "as child ICD-10 update of inactive term Dyslipidemia, goal to be determined 10/05/2009 09/15/2013 Overview: Per Lipid Taxonomy. HTN, goal to be determined 11/13/2008 Overview: Modified per HTN protocol #16. Mixed dyslipidemia 9 Overview: Per Lipid Taxonomy. Asthma, allergic 04/19/2010 Overview: "as child" Mixed dyslipidemia 7 documented as of this encounter (statuses as of 10/29/2023) Immunizations Name Administration Dates Next Due COVID-19 mRNA, LNP-s, No Pre serve, 2-Dose Series (Moderna) 10/31/2021,12/07/2020,11/07/2020 Pneumococcal Conjugate Vacci ne, 20-valent ([id number]) 09/06/2022 Seasonal Influenza, PF, 6 M & [...] encounter Miscellaneous Notes * Telephone Encounter - Tyesha Henao LPN - 10/29/2023 12:46 PM EST Care Gaps Comprehensive Care Outreach Last Office/Telemedicine Visit: 04/11/2023 (in office), Visit date not found (telemedicine) Next Office Visit: 12/05/2023 Hemoglobin AIC Results: Lab Results Component Value Date/Time HEMOGLOBIN A1C - LAVELLE 5.4 11/11/2008 05:14 PM Reviewed Health Maintenance below: Health Maintenance Topic Date Due Hepatitis B (1 of 3 - 3-dose series) Never done Cervical Cancer Screening 09/04/2019 Depression Screening 09/10/2020 Influenza Vaccine (FLU shot) (1) 06/27/2023 COVID-19 Vaccine ( season) 2023 Mammogram 03/21/2024 Pap already scheduled Mamm already scheduled order placed Care Gap Outreach Action Taken: Outreach not indicated documented in this encounter Plan of Treatment Upcoming Encounters Date Type Department Care Team (Late st Contact Info) Description 12/05/2023 4:20 PM EST Office Visit Family Medicine [address] [place] [phone] Demetrius Rich MD [address] [place] [address] [place] [phone] 03/05/2024 1:30 PM EDT Imaging Radiology [facility]st [facility] [place] [address] 08/06/2024 5:15 PM EDT Office Visit Gynecology/Obstetrics [facility] 132 [facility] [place] [address] Debbie Harding PA-C 132 [facility] [place] [address] Scheduled Orders Name Type Priority Associated Diagnoses Orde r Schedule MAMMOGRAM SCREENING MEENA BILATERAL Medical Imaging Routine Encounter for screening mammogram for malignant neoplasm of breast Expected: 10/29/2023, Expires: 11/29/2024 Scheduled Procedures Name Priority Associated Diagnoses Date/Ti [...] 02/22/2022, Additional history exists GFR 06/11/2024 06/11/2023, 040 01/2023, 02/15/2022, Additional history exists Lipid Panel [...] as of this encounter Visit Diagnoses Diagnosis Encounter for screening mammogram for malignant neoplasm of breast- Primary Other screening mammogram documented in this encounter Advance Directives Latest [...] the patient have Health Care Power of Gin Clerk? No Care Teams Tow Mate Relationship Specialty Start Date End Date Demetrius Rich MD [address] [place] [address] [place] [id number] PCP - General Family Medicine 07/29/14 documented as of this encounter
--- OUTSIDE RECORDS SUMMARY | 2024-02-26 00:42 | External Medical Summary | Summary of Care ---
Author Name Unknown Organization [facility] Address [address] [place] [address] Phone [phone] Care Team Providers Care Mill Feeder Name Role Phone Demetrius Rich MD Primary Care Provide r Reason for Visit * Reason Comments eRx-Medication Refill Encounter Details Date Type Department Care Team (Late st Contact Info) Description 12/03/2023 Refill Gynecology/Obstetrics [facility] [address] [place] [address] Anay Dawn MD [address] [place] [address] Vaginal atrophy Allergies Active Allergy Reactions Criticality Noted Date Comments Lisinopril Cough 12/06/2011 Penicillins 02/25/2007 rash documented as of this encounter (statuses as of 12/08/2023) Medications Medication Sig Dispensed Refills Start Date [...] Chewable Take by mouth. 0 Activ e Carvedilol 6.25 MG Oral Tablet (Coreg)Indication s:Essential hypertension with goal blood pressure less than 140/90 TAKE ONE TABLET BY MOUTH TWICE DAILY WITH FOOD 180 Tablet 3 11/04/2023 Active hydroCHLOROthiazi de 12.5 MG Oral Tablet (Hydrodiuril)Юлия cations:HTN, goal below 140/90 TAKE ONE TABLET BY MOUTH EVERY DAY 90 Tablet 1 11/19/2023 Active Estradiol 0.1 MG/GM Vaginal Cream (Estrace)Indicati ons:Vaginal atrophy INSERT 2 GRAMS VAGINALLY IN THE MORNING. 42.5 g 3 12/08/2023 Active Estradiol 0.1 MG/GM Vaginal Cream (Estrace)Indicati ons:Vaginal atrophy INSERT 2 GRAMS VAGINALLY IN THE MORNING. 42.5 g 0 11/04/2023 Discontinued documented as of this encounter (statuses as of 12/08/2023) Active Problems Problem Noted Date Diagnosed Date S/P total hysterectomy and bilateral salpingo-oo phorectomy 12/05/2023 History of hyperparathyroidism 09/04/2018 Overview: S/p parathyroidectomy Essential hypertension with goal blood pressure less than 140/90 09/13/2009 Overview: Modified per HTN protocol #16. Allergic rhinitis Varicose veins Moderate persistent asthma without complication Migraine aura without headache documented as of this encounter (statuses as of 12/08/2023) Resolved Problems Problem Noted Date Diagnosed Date [...] as of this encounter (statuses as of 12/08/2023) Immunizations Name Administration Dates Next Due COVID-19 mRNA, LNP-s, No Pre serve, 2-Dose Series (Moderna) 10/31/2021,12/07/2020,11/07/2020 Pneumococcal Conjugate Vacci ne, 20-valent ([id number]) 09/06/2022 Seasonal Influenza, PF, 6 M & [...] encounter Miscellaneous Notes * Telephone Encounter - Justin, Anay, MD - 12/08/2023 8:29 AM ESTSigned Prescriptions: Disp Refills Estradiol 0.1 MG/GM Vaginal Cream (Estrace)42.5 g 3 Sig: INSERT 2 GRAMS VAGINALLY IN THE MORNING. Authorizing Provider: ANAY DAWN * Telephone Encounter - Interface, E-Rx Ss Inbound - 12/07/2023 7:14 AM EST Pending Prescriptions: Disp Refills Estradiol 0.1 MG/GM Vaginal Cream (Estrace)42.5 g 3 Sig: INSERT 2 GRAMS VAGINALLY IN THE MORNING. * Telephone Encounter - Interface, E-Rx Ss Inbound - 12/05/2023 7:14 AM EST Pending Prescriptions: Disp Refills Estradiol 0.1 MG/GM Vaginal Cream (Estrace)42.5 g 3 Sig: INSERT 2 GRAMS VAGINALLY IN THE MORNING. * Telephone Encounter - Kelsey Henriquez LPN - 12/03/2023 8:49 AM EST Pending Prescriptions: Disp Refills Estradiol 0.1 MG/GM Vaginal Cream (Estrace)42.5 g 3 Sig: INSERT2 GRAMS VAGINALLY IN THE MORNING. documented in this encounter Plan of Treatment Upcoming Encounters Date Type Department Care Team (Late st Contact Info) Description 03/05/2024 1:30 PM EDT Imaging Radiology [facility] 1st [facility] [address] [place] [address] 08/06/2024 5:15 PM EDT Office Visit Gynecology/Obstetrics [facility] 132 [facility] [place] [address] Debbie Harding PA-C [address] [place] [address] 10/29/2024 8:40 AM EST Office Visit Family Medicine [address] [place] [phone] Demetrius Rich MD [address] [place] [address] [place] [id number] Scheduled Procedures Name Priority Associated Diagnoses Date/Ti [...] 02/28/2023, Additional history exists GFR 06/11/2024 06/11/2023, 040 [...] as of this encounter Visit Diagnoses Diagnosis Vaginal atrophy Postmenopausal atrophic vaginitis documented in this encounter Advance Directives Latest [...] the patient have Health Care Power of Sales Expert? No Care Teams Mill Feeder Relationship Specialty Start Date End Date Demetrius Rich MD [address] [place] [address] [place] [address] PCP - General Family Medicine 07/29/14 documented as of this encounter
--- OUTSIDE RECORDS SUMMARY | 2024-02-26 00:42 | External Medical Summary | Summary of Care ---
Author Name Unknown Organization [facility] Address [address] [place] [address] Phone [phone] Care Team Providers Care Twist Packer Name Role Phone Ambreen Rich MD Primary Care Provide r Reason for Visit * Reason Comments eRx-Medication Refill Encounter Details Date Type Department Care Team (Late st Contact Info) Description 11/19/2023 Refill Family Medicine [address] [phone] Ambreen Rich MD [address] [place] [address] [place] [address] HTN, goal below 140/90 Allergies Active Allergy Reactions Criticality Noted Date Comments Lisinopril Cough 12/06/2011 Penicillins 02/25/2007 rash documented as of this encounter (statuses as of 11/19/2023) Medications Medication Sig Dispensed Refills Start Date [...] MG Oral Capsule Take by mouth. 0 Activ e Magnesium Citrate Oral Solution Take 296 ml solution 5 PM the night before surgery 300 mL 0 06/11/2023 Active Estradiol 0.1 MG/GM Vaginal Cream (Estrace)Indicati [...] EVERY DAY 90 Tablet 1 11/19/2023 Active hydroCHLOROthiazi de 12.5 MG Oral Tablet (Hydrodiuril)Юлия cations:HTN, goal below 140/90 TAKE ONE TABLET BY MOUTH EVERY DAY 90 Tablet 2 02/27/2023 11/19/19 24 Discontinued documented as of this encounter (statuses as of 11/19/2023) Active Problems Problem Noted Date Diagnosed Date History of hyperparathyroidism 09/04/2018 Overview: S/p parathyroidectomy Essential hypertension with goal blood pressure less than 140/90 09/13/2009 Overview: Modified per HTN protocol #16. Allergic rhinitis Varicose veins Moderate persistent asthma without complication Migraine aura without headache documented as of this encounter (statuses as of 11/19/2023) Resolved Problems Problem Noted Date Diagnosed Date [...] as of this encounter (statuses as of 11/19/2023) Immunizations Name Administration Dates Next Due COVID-19 mRNA, LNP-s, No Pre serve, 2-Dose Series (Moderna) 10/31/2021,12/07/2020,11/07/2020 Pneumococcal Conjugate Vacci ne, 20-valent ([id number]) 09/06/2022 Seasonal Influenza, PF, 6 M & [...] encounter Miscellaneous Notes * Telephone Encounter - Kwame Brown rubén - 11/19/2023 7:32 PM ESTSigned Prescriptions: Disp Refills hydroCHLOROthiazide 12.5 MG Oral Tablet (H*90 Tab*1 Sig: TAKE ONE TABLET BY MOUTH EVERY DAYAuthorizing Provider: AMBREEN RICHOrderbimal User: KWAME BROWN documented in this encounter Plan of Treatment Upcoming Encounters Date Type Department Care Team (Late st Contact Info) Description 12/05/2023 4:20 PM EST Office Visit Family Medicine [address] [place] [phone] Ambreen Rich MD [address] [place] [address] [place] [phone] 03/05/2024 1:30 PM EDT Imaging Radiology [facility] 1st [facility] [address] [place] [phone] 08/06/2024 5:15 PM EDT Office Visit Gynecology/Obstetrics [facility] [address] [place] [address] Debbie Harding PA-C [address] [place] [address] Scheduled Procedures Name Priority Associated Diagnoses Date/Ti [...] as of this encounter Visit Diagnoses Diagnosis HTN, goal below 140/90 Unspecified essential hypertension documented in this encounter Advance Directives Latest [...] the patient have Health Care Power of Customer Relations Assistant? No Care Teams Twist Packer Relationship Specialty Start Date End Date Ambreen Rich MD [address] [place] [address] [place] [address] PCP - General Family Medicine 07/29/14 documented as of this encounter
--- OUTSIDE RECORDS SUMMARY | 2024-02-26 00:42 | External Medical Summary | Summary of Care ---
Author Name Unknown Organization [facility] Address [address] [place] [address] Phone [phone] Care Team Providers Care Reproductive Healthcare Assistant Name Role Phone Demetrius Rich MD Primary Care Provide r Reason for Visit * Reason Comments eRx-Medication Refill Encounter Details Date Type Department Care Team (Late st Contact Info) Description 09/26/2023 Refill Gynecology/Obstetrics [facility] [address] [place] [address] Anay Dawn MD [address] [place] [address] Vaginal atrophy Allergies Active Allergy Reactions Criticality Noted Date Comments Lisinopril Cough 12/06/2011 Penicillins 02/25/2007 rash documented as of this encounter (statuses as of 09/30/2023) Medications Medication Sig Dispensed Refills Start Date [...] Capsule Take by mouth. 0 Activ e hydroCHLOROthiazi de 12.5 MG Oral Tablet (Hydrodiuril)Юлия cations:HTN, goal below 140/90 TAKE ONE TABLET BY MOUTH EVERY DAY 90 Tablet 2 02/27/2023 Active Magnesium Citrate Oral Solution Take 296 ml solution 5 PM the night before surgery 300 mL 0 06/11/2023 Active Estradiol 0.1 MG/GM Vaginal Cream (Estrace)Indicati ons:Vaginal atrophy VAGINALLY INSERT 2 GRAMS IN THE MORNING 42.5 g 0 09/30/2023 Active Estradiol 0.1 MG/GM Vaginal Cream (Estrace)Indicati ons:Vaginal atrophy vaginally insert 2 grams in the morning 42.5 g 3 06/23/2023 09/30/20 23 Discontinued documented as of this encounter (statuses as of 09/30/2023) Active Problems Problem Noted Date Diagnosed Date History of hyperparathyroidism 09/04/2018 Overview: S/p parathyroidectomy Essential hypertension with goal blood pressure less than 140/90 09/13/2009 Overview: Modified per HTN protocol #16. Allergic rhinitis Varicose veins Moderate persistent asthma without complication Migraine aura without headache documented as of this encounter (statuses as of 09/30/2023) Resolved Problems Problem Noted Date Diagnosed Date [...] as of this encounter (statuses as of 09/30/2023) Immunizations Name Administration Dates Next Due COVID-19 mRNA, LNP-s, No Pre serve, 2-Dose Series (Moderna) 10/31/2021,12/07/2020,11/07/2020 Pneumococcal Conjugate Vacci ne, 20-valent ([id number]) 09/06/2022 SEASONAL INFLUENZA, PF, 6 M & Above, IM , (FLULAVAL or FLUZONE) 07/27/2019,07/27/2018,07/25/2017 Seasonal Influenza, Split, I IV3, With [...] encounter Miscellaneous Notes * Telephone Encounter - Anay Dawn MD - 09/30/2023 1:34 PM ESTSigned Prescriptions: Disp Refills Estradiol 0.1 MG/GM Vaginal Cream (Estrace)42.5 g 0 Sig: VAGINALLY INSERT 2 GRAMS IN THE MORNING Authorizing Provider: ANAY DAWN * Telephone Encounter - Adela Martin LPN - 09/29/2023 11:22 AM ESTPending Prescriptions: Disp Refills Estradiol 0.1 MG/GM Vaginal Cream [Pharmac*42.5 g 0 Sig: vaginally insert 2 grams in the morning * Telephone Encounter - Alireza E-Rx Ss Inbound - 09/28/2023 12:50 PM EST Pending Prescriptions: Disp Refills Estradiol 0.1 MG/GM Vaginal Cream [Pharmac*42.5 g 0 Sig: vaginally insert 2 grams in the morning documented in this encounter Plan of Treatment Upcoming Encounters Date Type Department Care Team (Late st Contact Info) Description 12/05/2023 4:20 PM EST Office Visit Family Medicine [address] [place] [phone] Demetrius Rich MD [address] [place] [address] [place] [address] 03/05/2024 1:30 PM EDT Imaging Radiology [facility] [address] [place] [address] 08/06/2024 5:15 PM EDT Office Visit Gynecology/Obstetrics [facility] [address] [place] [address] Debbie Harding PA-C [address] [place] [address] Scheduled Procedures Name Priority Associated Diagnoses Date/Ti [...] the patient have Health Care Power of Towerman? No Care Teams Reproductive Healthcare Assistant Relationship Specialty Start Date End Date Demetrius Rich MD [address] [place] [address] [place] [phone] PCP - General Family Medicine 07/29/14 documented as of this encounter
[2024-02-26 07:38] LABS: Basophils # (auto) 0.03 K/uL (0.00-0.20); Basophils % (auto) 0.4 %; Eosinophils # (auto) 0.61 K/uL (0.00-0.50); Eosinophils % (auto) 7.9 %; Hematocrit (blood only) 36.5 % (37.0-47.0); Hemoglobin 12.5 g/dl (12.0-16.0); Immature Granulocytes # (auto) 0.03 K/uL (0.01-0.20); Immature Granulocytes % (auto) 0.4 %; Lymphocytes # (auto) 0.99 K/uL (1.20-3.40); Lymphocytes % (auto) 12.8 %; Mean Corpuscular Hemoglobin 31.7 pg (25.0-34.0); Mean Corpuscular Hgb Conc 34.2 g/dL (32.0-36.0); Mean Corpuscular Volume 92.6 fL (80.0-100.0); Mean Platelet Volume 11.3 fL (9.4-12.4); Monocytes # (auto) 0.57 K/uL (0.11-0.59); Monocytes % (auto) 7.4 %; Neutrophils % (auto) 71.1 %; Platelet Count 185 K/uL (130-400); RDW Standard Deviation 43.9 fL (36.4-46.3); Red Blood Count 3.94 M/uL (4.20-5.40); White Blood Count 7.73 K/ul (4.8-10.8)
[2024-02-26 08:19] LABS: BUN Creatinine Ratio 21.1 (10-20); Est GFR (African American) 118.4 ml/min; Est GFR (Non-African American) 102.2 ml/min; Potassium 3.1 mmol/L (3.5-5.1)
--- NOTE | 2024-02-26 09:23 | Surgery Progress Note ---
Date of Service February 26, 2024 Assessment & Plan (1) Complete small bowel obstruction: Plan: POD # 2 s/p ex lap lysis of adhesions avss postop pain controlled minimal gas NGT dark brown/green, 250 cc last shift but 850 total Plan: continue pain management, will give one time dose of IV tylenol, IV toradol as needed continue NGT for this am, will likely try clamp trial late morning IV fluids encouraged ambulation and incentive lovenox and scds repeat am labs while npo Discussed with Dr. Stevenson who agrees with above. Admission and Anticipated Discharge Date Admission Date: February 24, 2024 Subjective feeling good pain about 2/10, controlled passing only small amount of flatus no n,v sitting up in chair and ambulating Physical Exam Constitutional: WD/WN, vitals as above cooperative and comfortable; no acute distress and not ill appearing Respiratory: normal respiratory effort; no respiratory distress, no labored breathing and no retractions Gastrointestinal (Abdomen): Inspection/Auscultation: abdomen normal to inspection and + hypoactive bowel sounds; abdomen not distended Percussion/Palpation: + abdomen tender (at midline incision) and abdomen soft; no guarding, abdomen not rigid and abdomen not firm Skin: no rashes, warm and dry Psychiatric: A+Ox3, euthymic affect Results & Data Vital Signs (Past 12 Hours) Vital Signs Temp Pulse Resp BP Pulse Ox O2 Del Method 02/26/24 07:23 36.6 C 81 16 160/85 H 95 Room Air 02/25/24 22:32 37.1 C 83 15 151/82 H 94 Room Air Laboratory Results 02/26/24 Range/Units 06:47 WBC 7.73 (4.8-10.8) K/ul RBC 3.94 L (4.20-5.40) M/uL Hgb 12.5 (12.0-16.0) g/dl Hct 36.5 L (37.0-47.0) % MCV 92.6 (80.0-100.0) fL MCH 31.7 (25.0-34.0) pg MCHC 34.2 (32.0-36.0) g/dL RDW Std Deviation 43.9 (36.4-46.3) fL RDW Coeff of Haris 13.0 (11.5-14.5) % Plt Count 185 (130-400) K/uL MPV 11.3 (9.4-12.4) fL Immature Gran % (Auto) 0.4 % Neut % (Auto) 71.1 % Lymph % (Auto) 12.8 % Stan[place]aus % (Auto) 7.4 % Eos % (Auto) 7.9 % Baso % (Auto) 0.4 % Neut # (Auto) 5.50 (1.40-6.50) K/uL Lymph # (Auto) 0.99 L (1.20-3.40) K/uL Stanislaus # (Auto) 0.57 (0.11-0.59) K/uL Eos # (Auto) 0.61 H (0.00-0.50) K/uL Baso # (Auto) 0.03 (0.00-0.20) K/uL Immature Gran # (Auto) 0.03 (0.01-0.20) K/uL Sodium 143 (136-145) mmol/L Potassium 3.1 L (3.5-5.1) mmol/L Chloride 109 H (98-107) mmol/L Carbon Dioxide 26 (21-32) mmol/L Anion Gap 8 (3-11) BUN 12 (6-23) mg/dl Creatinine 0.57 L (0.6-1.2) mg/dl Est Cr Clr Drug Dosing 110.0 ml/min Est GFR ( Amer) 118.4 ml/min Est GFR (Non-Af Amer) 102.2 ml/min BUN/Creatinine Ratio 21.1 H (10-20) Glucose 100 H (70-99(Fasting)) mg/dl Calcium 8.0 L (8.6-10.3) mg/dl
[2024-02-26] MEDS: ACETAMINOPHEN 1,000 MG/100 ML VIAL IV STA (09:49)
[2024-02-26] MEDS: POTASSIUM CHLORIDE / WTR 10 MEQ/100 ML PLCT IV SCH (10:18)
[2024-02-26] MEDS: ACETAMINOPHEN 325 MG TAB PO PRN (15:20)
[2024-02-26] MEDS: hydroCHLOROthiazide 25 MG TAB PO SCH (15:24)
[2024-02-26] MEDS ORDERED: IBUPROFEN 600 MG TAB PO PRN (16:05)
[2024-02-26] MEDS: carvediloL 6.25 MG TAB PO SCH (20:39)
[2024-02-27 07:26] LABS: BUN Creatinine Ratio 15.3 (10-20); Calcium 8.6 mg/dl (8.6-10.3); Creatinine Clr Calc Pharmacy 106.3 ml/min; Est GFR (African American) 117.1 ml/min; Potassium 3.3 mmol/L (3.5-5.1)
[2024-02-27] MEDS: POTASSIUM CHLORIDE CRTAB 20 MEQ TABCR PO STA (10:06)
--- NOTE | 2024-02-27 10:10 | Surgery Progress Note ---
Date of Service February 27, 2024 Assessment & Plan (1) Complete small bowel obstruction: Plan: POD # 3 s/p ex lap lysis of adhesions avss postop pain controlled + flatus Plan: continue pain management, PO Tylenol and Ibuprofen as needed, patient avoiding narcotics Full liquids for lunch, advised to go slow d/c iv fluids 20 meq of potassium oral encouraged ambulation and incentive lovenox and scds Dr. Sweeney covering this weekend Discussed with Dr. Stevenson who agrees with above. Admission and Anticipated Discharge Date Admission Date: February 24, 2024 Subjective feeling well passing more gas tolerating clears without pain, n,v ambulating fine urianting without difficulty Physical Exam Constitutional: WD/WN, vitals as above cooperative and comfortable; no acute distress and not ill appearing Respiratory: normal respiratory effort; no respiratory distress, no labored breathing and no retractions Gastrointestinal (Abdomen): Inspection/Auscultation: abdomen normal to inspection, + abdominal surgical incision (c/d/i with jennifer) and + hypoactive bowel sounds; abdomen not distended Percussion/Palpation: + abdomen tender (mild at midline incision) and abdomen soft; no guarding and abdomen not firm Skin: no rashes, warm and dry Psychiatric: A+Ox3, euthymic affect Results & Data Vital Signs (Past 12 Hours) Vital Signs Temp Pulse Pulse Resp BP Pulse Ox O2 Del Method 02/27/24 07:37 37.1 C 74 74 18 155/86 H 95 Room Air Laboratory Results 02/27/24 Range/Units 06:28 Sodium 142 (136-145) mmol/L Potassium 3.3 L (3.5-5.1) mmol/L Chloride 107 (98-107) mmol/L Carbon Dioxide 29 (21-32) mmol/L Anion Gap 6 (3-11) BUN 9 (6-23) mg/dl Creatinine 0.59 L (0.6-1.2) mg/dl Est Cr Clr Drug Dosing 106.3 ml/min Est GFR ( Amer) 117.1 ml/min Est GFR (Non-Af Amer) 101.0 ml/min BUN/Creatinine Ratio 15.3 (10-20) Glucose 147 H (70-99(Fasting)) mg/dl Calcium 8.6 (8.6-10.3) mg/dl
--- NOTE | 2024-02-28 05:35 | Surgery Progress Note ---
Date of Service February 28, 2024 Assessment & Plan (1) SBO (small bowel obstruction): Plan: Patient is status post exploratory laparotomy with lysis of adhesions on 02/24/2024 (postoperative day #4) Continue full liquids for the present time. Consideration be given to further advancing her diet as her bowel function continues to improve Continue analgesics as needed Continue antiemetics if needed Continue to mobilize as able Lovenox is in place for DVT prevention as above. feels great/wants to go home. small bm/lots of flatus. no nausea will replace potassium. if tolerates low fiber diet will d/c this afternoon. Admission and Anticipated Discharge Date Admission Date: February 24, 2024 Subjective Patient is currently resting comfortably in bed. She notes that she is tolerating full liquids without exacerbating any abdominal pain. She has not had any nausea or vomiting. Patient notes her pain is currently well-contr olled. She is passing flatus and notes that she had a very minuscule bowel movement last night. She notes that she has been able to ambulate since her surgery Physical Exam Gastrointestinal (Abdomen): Abdomen is soft and nondistended. Bowel sounds are present. Patient has some minor tenderness near her surgical incision. Midline incision is clean, dry, and intact with jennifer. Results & Data Vital Signs (Past 12 Hours) Vital Signs Temp Pulse Resp BP Pulse Ox O2 Del Method 02/27/24 20:12 36.7 C 64 16 150/88 H 97 Room Air 02/27/24 19:45 Room Air PG Care Time/CCT Total # of Minutes Spent Total Time Spent with Patient: Total time spent is greater than 50% in coordination of care (as documented) at patient's floor/unit and/or counseling patient: Coding Level of Care Code 27406 Post Operative Follow-Up Diagnoses SBO (small bowel obstruction) K56.609
[2024-02-28] MEDS: POTASSIUM CHLORIDE CRTAB 20 MEQ TABCR PO SCH (09:06)
--- NOTE | 2024-03-01 09:21 | Discharge Summary ---
Date of Service March 01, 2024 Admission HPI Per Admitting Provider 58-year-old woman with past surgical history of laparoscopic cholecystectomy as well as a hysterectomy presents with 8 hours of severe mid abdominal pain. She ate breakfast this morning and did not have any problems. Around noon she developed severe pain nausea and vomiting which has persisted and worsened. She denies fevers and chills. She denies heart problems, chest pain, shortness of breath. CT scan demonstrates what appears to be a closed-loop obstruction with an internal hernia. Principal Diagnosis Complete bowel obstruction, internal hernia Discharge Data Allergies Allergy/AdvReac Type Severity Reaction Status Date / Time bee venom protein (honey bee) Allergy Severe swelling Verified 02/24/24 20:18 at site and spreads lisinopril Allergy Mild Rash Verified 02/24/24 20:18 animal dander Allergy Unknown SHORTNESS Verified 02/24/24 20:18 OF BREATH Penicillins Allergy Unknown HIVES Verified 02/24/24 20:18 pollen extracts Allergy Unknown SHORTNESS Verified 02/24/24 20:18 OF BREATH COLD AIR Allergy Unknown SHORTNESS Uncoded 02/24/24 20:18 OF BREATH Dust Allergy Unknown SHORTNESS Uncoded 02/24/24 20:18 OF BREATH PERFUME Allergy Unknown SHORTNESS Uncoded 02/24/24 20:18 OF BREATH Consultations 02/24/24 19:14 Consult General Surgery Stat Procedures Performed Operation Date: 02/24/24 20:00 Actual Procedures p Exploratory Laparotomy Lysis of Adhesions - Avtar Stevenson MD Ordered Studies 02/24/24 16:56 CT Abd and Pelvis [CT abd pelvis IV con only] Stat Hospital Course (1) Complete small bowel obstruction: Patient was taken to operating room for exploratory laparotomy by Dr. Avtar Stevenson in evening 02/24/2024. Found to have an adhesive band causing internal hernia however bowel was viable, no bowel resection required. Patient tolerated procedure without difficulty and was transferred to medical/surgical floor for postoperative care. She was kept NPO with NGT to LIS, pain management as needed, activity as tolerated, IV fluids, and antiemetics as needed. Once bowel fuction returned on POD # 2 , NGT was removed and diet slowly advanced. Pain was controlled with minimal narcotics and pain medication postoperatively. She was ambulating hallway and using incentive spirometer. Diet was advanced to low fiber diet on POD # 4 and she was discharged home in stable condition. Total Time Total Time Spent Total Time Spent (In Minutes): 30 minutes Total Time Includes: Examination of the Patient, Discharge Planning, Medication Reconciliation and Communication With Other Providers Discharge Plan Discharge Items Patient Disposition: Home - Self-Care Reason For Visit: BOWEL OBSTRUCTION Discharge Diagnosis: Bowel obstruction Condition on Discharge: Serious Activity: Per Instructions section Non-emergency contact: Primary Care Provider and Surgeon Call non-emergency contact if: you have any medication questions, your pain is not controlled, your pain is worsening, you have a fever, your temperature is above 101, your wound has increased redness, your wound has increased drainage and your wound pain has increased Follow-up/Referrals: Avtar Stevenson MD [Physician] - Demetrius Rich MD [Primary Care Provider] - Diet: Regular Addtl Attending Provider Instructions: Post-Surgical ~Discharge Instructions Activity Recommendations: - lifting limitation: (10 pounds for 4-6 weeks), - exercise/sex/sports limit: (nonstrenuous for 4-6 weeks), - driving or machine use limit: (none for 1 week or until pain free and no longe r taking any narcotic pain medication), - Shower/bathe limit: (may shower, no submerging incision underwater for 2 weeks) Diet: - Resume previous diet SPECIAL CARE INSTRUCTIONS: - May shower. Let water run over area and pat dry. - Surgical jennifer will be removed in office - Call the surgeon's office with any questions or concerns - - (ex. temperature higher than 101 degrees F, excessive bleeding or pain). MEDICATIONS: - Resume previous medications unless instructed otherwise by your surgeon. - May alternate extra strength Tylenol and Ibuprofen as needed for mild to mo derate pain -650 mg Tylenol every 6 hours as needed - Ibuprofen 600 mg every 6 hours as needed , take with food - Percocet 1 every 6 hours, as needed for moderate to severe pain FOLLOW UP VISIT: - If not already scheduled, please call the office to schedule a one week follow-up appointment. Office number Pending Studies at Discharge: No Stand-Alone Forms: [employer], Smoking Cessation Medications and DC Order Prescriptions: New oxycodone-acetaminophen 5-325 mg tablet 1 tab PO Q6H PRN (Reason: pain) Qty: 5 0RF Continued carvedilol 6.25 mg Tablet 6.25 mg PO BID Rx Instructions: must administer with a meal/food ascorbic acid (vitamin C) [Vitamin C] 500 mg Tablet 500 mg PO QAM ibuprofen 200 mg Tablet 400 mg PO Q6H PRN (Reason: Pain) loratadine 10 mg Tablet 10 mg PO HS hydrochlorothiazide 12.5 mg Tablet 12.5 mg PO QAM mv,Ca,ir,Wl-ZX-jgb-gel-ekaterina-PAB 3-133 mg-mcg Capsule 1 cap PO HS estradiol 0.01 % (0.1 mg/gram) Cream 1 appful VAGINAL 3XWK acetaminophen [Tylenol 8 Hour] 650 mg Tablet Extended Release 650 mg PO Q8H PRN (Reason: Pain) albuterol sulfate 90 mcg/actuation Hfa Aerosol Inhaler 2 puff INHALATION Q4H PRN (Reason: Shortness Of Breath Or Wheezing) cholecalciferol (vitamin D3) [Vitamin D3] 125 mcg (5,000 unit) Tablet 125 mcg PO DAILY Biotin/Collagen Liquid 1 dose PO DAILY Rx Instructions: DOSE- 1 DROPPER FULL. Discharge Orders: Discharge Order (Routine); Ordered 02/28/24 Ordered By: Luis Carlos Sweeney Admission Data Admit Date/Time: 02/24/24 22:03 Attending Provider: Avtar Stevenson Admit Provider: Avtar Stevenson Primary Care Provider: Demetrius Rich Other Providers: Avtar Stevenson Other Interventions: Discharge Summary Assessment (RN) Last Done: 02/28/24 13:42
== END 2024-02-28 14:06 | disposition home or self-care (01) | DRG 337 ==
LOC: ED 16:37 → OR 20:49 → 3W 22:03